=== PATIENT | male | born 1965 | race Two or more races ===

== ENCOUNTER 2016-09-13 13:31 | Inpatient (IN) | payer OTHER ==
[2016-09-13 15:02] VITALS: BMI 20.8
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
[2016-09-13] MEDS ORDERED: diphenhydrAMINE HCL 50 MG CAPSULE PO PRN (17:21)
[2016-09-13] MEDS ORDERED: guaiFENesin/D-METHORPHAN HB 10 ML UNIT-DOSE CUPS PO PRN (17:21)
[2016-09-13] MEDS ORDERED: IBUPROFEN 400 MG TABLET (FP) PO PRN (17:21)
[2016-09-13] MEDS ORDERED: LOPERAMIDE HCL 2 MG CAPSULE PO PRN (17:21)
[2016-09-13] MEDS ORDERED: MAGNESIUM HYDROX 2400MG/30ML ORAL SUSPENSION 30 ML CUP PO PRN (17:21)
[2016-09-13] MEDS ORDERED: MENTHOL/PHENOL 1 EACH UD MM PRN (17:21)
[2016-09-13] MEDS ORDERED: MAGNESIUM CITRATE 300 ML BOTTLE PO PRN (17:21)
[2016-09-13] MEDS ORDERED: MAG HYDROX/AL HYDROX/SIMETH 30 ML UNIT-DOSE CUP PO PRN (17:21)
[2016-09-13] MEDS ORDERED: P-EPHED 60MG/TRIPROLIDI 2.5MG TABLET PO PRN (17:21)
[2016-09-13] MEDS ORDERED: ACETAMINOPHEN 325 MG TABLET (FP) PO PRN (17:21)
[2016-09-13] MEDS ORDERED: NICOTINE POLACRILEX 2 MG GUM BUC PRN (17:23)
[2016-09-13] MEDS ORDERED: diazePAM 5 MG TABLET PO ONE (18:30)
[2016-09-13] MEDS ORDERED: METHADONE HCL 10 MG TABLET (FOR DETOX USE ONLY) PO ONE ×2 (18:30→23:00)
[2016-09-13] MEDS: NICOTINE 14 MG/24 HOURS TOPICAL PATCH TD SCH (18:52)
[2016-09-13] MEDS: BACITRACIN 0.9 GM PACKET TP SCH ×2 (18:52→22:11)
[2016-09-13] MEDS: THIAMINE HCL 100 MG TABLET (FP) PO SCH (22:11)
[2016-09-13] MEDS: diazePAM 5 MG TABLET PO SCH (22:12)
[2016-09-13] MEDS: SULFAMETHOXAZOLE/TRIMETHOPRIM 800MG/160MG D.S. TABLET PO SCH (22:12)
[2016-09-14] MEDS: diazePAM 5 MG TABLET PO SCH ×3 (05:26→22:12)
[2016-09-14] MEDS ORDERED: METHADONE HCL 10 MG TABLET (FOR DETOX USE ONLY) PO SCH (10:00)
--- NOTE | 2016-09-14 10:03 | PN ---
[facility] CIWA - CIWA Score Nausea/Vomitin-No Nausea/No Vomiting Muscle Tremors: 4-Moderate,w/Arms Extend Anxiety: 4-Mod. Anxious/Guarded Agitation: 3 Paroxysmal Sweats: 3 Orientation: 0-Oriented Tacttile Disturbances: 0-None Auditory Disturbances: 0-None Visual Disturbances: 0-None Headache: 0-None Present CIWA-Ar Total Score: 14 S COWS - Scale Resting Pulse: 0= [place] 80 or Below Sweatin=Flushed/Facial Moisture Restless Observation: 1= Difficult to Sit Still Pupil Size: 0= Normal to Room Light Bone or Joint Aches: 2= Severe Diffuse Aches Runny Nose/ Eye Tearin= Runny Nose/Eyes GI Upset > 30mins: 2= Nausea/Diarrhea Tremor Observation of Outstretched Hands: 2= Slight Tremor Visible Yawning Observation: 1= 1-2x During Session Anxiety or Irritability: 2=Irritable/Anxious Goose Flesh Skin: 0=Smooth Skin COWS Score: 14 [facility] Progress Note (SOAP) Subjective: Anxiety,tremors,interrupted sleep,restless Objective: 09/14/16 10:06 Vital Signs - 8 hr 09/14/16 09/14/16 09/14/16 03:30 06:22 09:11 Temperature 97 F L 98.1 F Pulse Rate 69 77 Respiratory 18 18 20 Rate Blood Pressure 110/65 101/66 Assessment: 09/14/16 10:07 Withdrawal sx. Plan: Continue detox
[2016-09-14 10:05] LABS: MCHC 33.6 g/dl (32.0-35.9); MEAN CELL VOLUME 89.4 fl (80-96); MEAN PLT VOLUME 10.5 fl (7.5-11.1); PLATELET COUNT 138 K/MM3 (134-434); WHITE BLOOD COUNT 3.9 K/mm3 (4.0-10.0)
[2016-09-14] MEDS: SULFAMETHOXAZOLE/TRIMETHOPRIM 800MG/160MG D.S. TABLET PO SCH ×2 (10:18→22:12)
[2016-09-14] MEDS: PRENATAL VITAMINS W/ FOLIC ACID TABLET (FP) PO SCH (10:18)
[2016-09-14] MEDS: BACITRACIN 0.9 GM PACKET TP SCH ×4 (10:18→22:12)
[2016-09-14] MEDS: NICOTINE 14 MG/24 HOURS TOPICAL PATCH TD SCH (10:19)
[2016-09-14 10:40] LABS: ALBUMIN 3.9 g/dl (3.4-5.0); BILIRUBIN,TOTAL 0.5 mg/dL (0.2-1.0); CREATININE 1.3 mg/dL (0.7-1.3); TOT PROT 7.4 g/dl (6.4-8.2)
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
[2016-09-14 14:41] LABS: URINE APPEARANCE CLEAR; URINE BILIRUBIN NEGATIVE (NEGATIVE); URINE BLOOD NEGATIVE (NEGATIVE); URINE COLOR LTYELLOW; URINE GLUCOSE (UA) NEGATIVE (NEGATIVE); URINE KETONE NEGATIVE (NEGATIVE); URINE LEUK ESTERASE NEGATIVE (NEGATIVE); URINE NITRITE NEGATIVE (NEGATIVE); URINE PROTEIN NEGATIVE (NEGATIVE); URINE UROBILINOGEN NEGATIVE E.U./dl (0.2-1.0)
--- NOTE | 2016-09-14 16:28 | EKG ---
Test Reason : Blood Pressure : / mmHG Vent. Rate : 080 BPM Atrial Rate : 080 BPM P-R Int : 156 ms QRS Dur : 072 ms QT Int : 360 ms P-R-T Axes : 073 066 066 degrees QTc Int : 415 ms NORMAL SINUS RHYTHM NORMAL ECG NO PREVIOUS ECGS AVAILABLE Confirmed by TORREY BAUTISTA, YASMANI ([id number]) on 09/14/2016 4:28:43 PM Referred By: Benito Frias Confirmed By:YASMANI HIRSCH MD
[2016-09-14] MEDS: diazePAM 5 MG TABLET PO PRN (17:07)
[2016-09-14] MEDS: THIAMINE HCL 100 MG TABLET (FP) PO SCH (22:12)
[2016-09-14] MEDS: QUEtiapine FUMARATE 50 MG TABLET PO SCH (22:13)
[2016-09-15] MEDS: diazePAM 5 MG TABLET PO PRN ×3 (05:12→18:48)
[2016-09-15] MEDS: diazePAM 5 MG TABLET PO SCH ×2 (10:10→22:09)
[2016-09-15] MEDS: BACITRACIN 0.9 GM PACKET TP SCH ×4 (10:10→22:09)
[2016-09-15] MEDS: PRENATAL VITAMINS W/ FOLIC ACID TABLET (FP) PO SCH (10:10)
[2016-09-15] MEDS: METHADONE HCL 5 MG TABLET (FOR DETOX USE ONLY) PO SCH (10:10)
[2016-09-15] MEDS: NICOTINE 14 MG/24 HOURS TOPICAL PATCH TD SCH (10:10)
[2016-09-15] MEDS: SULFAMETHOXAZOLE/TRIMETHOPRIM 800MG/160MG D.S. TABLET PO SCH ×2 (10:10→22:09)
--- NOTE | 2016-09-15 10:33 | PN ---
[facility] CIWA - CIWA Score Nausea/Vomitin-No Nausea/No Vomiting Muscle Tremors: 4-Moderate,w/Arms Extend Anxiety: 4-Mod. Anxious/Guarded Agitation: 4-Moderately Restless Paroxysmal Sweats: 1-Minimal Palms Moist Orientation: 0-Oriented Tacttile Disturbances: 3-Moderate Itch/Numb/Burn Auditory Disturbances: 0-None Visual Disturbances: 0-None Headache: 0-None Present CIWA-Ar Total Score: 16 BHS COWS - Scale Resting Pulse: 1= [place] 81-100 Sweatin= Chills/Flushing Restless Observation: 3= Extraneous Movement Pupil Size: 2= Moderately Dilated Bone or Joint Aches: 4=Acute Joint/Muscle Pain Runny Nose/ Eye Tearin= Nasal Congestion GI Upset > 30mins: 1= Stomach Cramp Tremor Observation of Outstretched Hands: 2= Slight Tremor Visible Yawning Observation: 2= >3x During Session Anxiety or Irritability: 2=Irritable/Anxious Goose Flesh Skin: 0=Smooth Skin COWS Score: 19 S Progress Note (SOAP) Subjective: SWEATS/CHILLS,ANXIETY, INTERMITTENT SLEEP. Objective: 09/15/16 10:32 Vital Signs 09/15/16 09/15/16 09/15/16 03:22 06:32 09:58 Temperature 96.6 F L 96.8 F L Pulse Rate 88 76 Respiratory 18 18 18 Rate Blood Pressure 100/68 96/64 Laboratory Last Values WBC 3.9 K/mm3 (4.0-10.0) L D 09/14/16 06:00 RBC 4.48 M/mm3 (4.00-5.60) 09/14/16 06:00 Hgb 13.4 GM/dL (11.7-16.9) 09/14/16 06:00 Hct 40.0 % (35.4-49) 09/14/16 06:00 MCV 89.4 fl (80-96) 09/14/16 06:00 MCHC 33.6 g/dl (32.0-35.9) 09/14/16 06:00 RDW 13.0 % (11.9-15.9) 09/14/16 06:00 Plt Count 138 K/MM3 (134-434) D 09/14/16 06:00 MPV 10.5 fl (7.5-11.1) D 09/14/16 06:00 Sodium 139 mmol/L (136-145) 09/14/16 06:00 Potassium 4.9 mmol/L (3.5-5.1) 09/14/16 06:00 Chloride 101 mmol/L (98-107) 09/14/16 06:00 Carbon Dioxide 30 mmol/L (21-32) 09/14/16 06:00 Anion Gap 8 (8-16) 09/14/16 06:00 BUN 12 mg/dL (7-18) 09/14/16 06:00 Creatinine 1.3 mg/dL (0.7-1.3) 09/14/16 06:00 Creat Clearance w eGFR 58.67 (>60) 09/14/16 06:00 Random Glucose 132 mg/dL (74-106) H D 09/14/16 06:00 Calcium 9.0 mg/dL (8.5-10.1) 09/14/16 06:00 Total Bilirubin 0.5 mg/dL (0.2-1.0) D 09/14/16 06:00 AST 20 U/L (15-37) 09/14/16 06:00 ALT 26 U/L (12-78) 09/14/16 06:00 Alkaline Phosphatase 88 U/L (45-117) 09/14/16 06:00 Total Protein 7.4 g/dl (6.4-8.2) 09/14/16 06:00 Albumin 3.9 g/dl (3.4-5.0) 09/14/16 06:00 Urine Color Ltyellow 09/14/16 09:50 Urine Appearance Clear 09/14/16 09:50 Urine pH 7.0 (5.0-8.0) 09/14/16 09:50 Ur Specific [place] 1.017 (1.001-1.035) 09/14/16 09:50 Urine Protein Negative (NEGATIVE) 09/14/16 09:50 Urine Glucose (UA) Negative (NEGATIVE) 09/14/16 09:50 Urine Ketones Negative (NEGATIVE) 09/14/16 09:50 Urine Blood Negative (NEGATIVE) 09/14/16 09:50 Urine Nitrite Negative (NEGATIVE) 09/14/16 09:50 Urine Bilirubin Negative (NEGATIVE) 09/14/16 09:50 Urine Urobilinogen Negative E.U./dl (0.2-1.0) 09/14/16 09:50 Ur Leukocyte Esterase Negative (NEGATIVE) 09/14/16 09:50 RPR Titer Nonreactive (NONREACTIVE) 09/14/16 06:00 Assessment: 09/15/16 10:33 WITHDRAWAL SX Plan: CONTINUE DETOX
[2016-09-15] MEDS: THIAMINE HCL 100 MG TABLET (FP) PO SCH (22:09)
[2016-09-15] MEDS: QUEtiapine FUMARATE 50 MG TABLET PO SCH (22:09)
[2016-09-16] MEDS: diazePAM 5 MG TABLET PO PRN ×2 (05:36→17:19)
[2016-09-16] MEDS: BACITRACIN 0.9 GM PACKET TP SCH ×4 (10:18→22:13)
[2016-09-16] MEDS: SULFAMETHOXAZOLE/TRIMETHOPRIM 800MG/160MG D.S. TABLET PO SCH ×2 (10:18→22:13)
[2016-09-16] MEDS: METHADONE HCL 5 MG TABLET (FOR DETOX USE ONLY) PO SCH (10:18)
[2016-09-16] MEDS: PRENATAL VITAMINS W/ FOLIC ACID TABLET (FP) PO SCH (10:18)
[2016-09-16] MEDS: NICOTINE 14 MG/24 HOURS TOPICAL PATCH TD SCH (10:19)
[2016-09-16] MEDS: diazePAM 5 MG TABLET PO SCH ×2 (10:19→22:13)
--- NOTE | 2016-09-16 11:33 | PN ---
BHS Progress Note (SOAP) Subjective: Sweating,interrupted sleep,restless.Abscess is slowly liquifying. Objective: 09/16/16 11:30 Vital Signs - 8 hr 09/16/16 09/16/16 09/16/16 03:45 06:24 09:37 Temperature 98.1 F 98.4 F Pulse Rate 85 91 H Respiratory 18 16 18 Rate Blood Pressure 109/76 108/73 Laboratory Tests 09/14/16 09/14/16 09/14/16 06:00 06:00 06:00 WBC 3.9 L D RBC 4.48 Hgb 13.4 Hct 40.0 MCV 89.4 MCHC 33.6 RDW 13.0 Plt Count 138 D MPV 10.5 D Sodium 139 Potassium 4.9 Chloride 101 Carbon Dioxide 30 Anion Gap 8 BUN 12 Creatinine 1.3 Creat Clearance w eGFR 58.67 Random Glucose 132 H D Calcium 9.0 Total Bilirubin 0.5 D AST 20 ALT 26 Alkaline Phosphatase 88 Total Protein 7.4 Albumin 3.9 Urine Color Urine Appearance Urine pH Ur Specific [place] Urine Protein Urine Glucose (UA) Urine Ketones Urine Blood Urine Nitrite Urine Bilirubin Urine Urobilinogen Ur Leukocyte Esterase RPR Titer Nonreactive 09/14/16 09:50 WBC RBC Hgb Hct MCV MCHC RDW Plt Count MPV Sodium Potassium Chloride Carbon Dioxide Anion Gap BUN Creatinine Creat Clearance w eGFR Random Glucose Calcium Total Bilirubin AST ALT Alkaline Phosphatase Total Protein Albumin Urine Color Ltyellow Urine Appearance Clear Urine pH 7.0 Ur Specific [place] 1.017 Urine Protein Negative Urine Glucose (UA) Negative Urine Ketones Negative Urine Blood Negative Urine Nitrite Negative Urine Bilirubin Negative Urine Urobilinogen Negative Ur Leukocyte Esterase Negative RPR Titer labs noted Assessment: 09/16/16 11:30 Withdrawal sx. Plan: Continue detox
[2016-09-16] MEDS: QUEtiapine FUMARATE 50 MG TABLET PO SCH (22:13)
[2016-09-16] MEDS: THIAMINE HCL 100 MG TABLET (FP) PO SCH (22:13)
[2016-09-17] MEDS ORDERED: diazePAM 5 MG TABLET PO SCH (10:00)
[2016-09-17] MEDS ORDERED: METHADONE HCL 10 MG TABLET (FOR DETOX USE ONLY) PO SCH (10:00)
[2016-09-17] MEDS: NICOTINE 14 MG/24 HOURS TOPICAL PATCH TD SCH (10:23)
[2016-09-17] MEDS: BACITRACIN 0.9 GM PACKET TP SCH ×4 (10:23→22:10)
[2016-09-17] MEDS: PRENATAL VITAMINS W/ FOLIC ACID TABLET (FP) PO SCH (10:23)
[2016-09-17] MEDS: SULFAMETHOXAZOLE/TRIMETHOPRIM 800MG/160MG D.S. TABLET PO SCH ×2 (10:23→22:10)
--- NOTE | 2016-09-17 13:11 | PN ---
B[facility] Progress Note (SOAP) Subjective: Sweating,interrupted sleep,restless. Abscess is draining, we'll cover with 4x4 gauze. Objective: 09/17/16 13:09 Vital Signs - 8 hr 09/17/16 09/17/16 06:28 09:25 Temperature 96.9 F L 97.7 F Pulse Rate 81 83 Respiratory 16 18 Rate Blood Pressure 84/60 97/61 Laboratory Tests 09/14/16 09/14/16 09/14/16 06:00 06:00 06:00 WBC 3.9 L D RBC 4.48 Hgb 13.4 Hct 40.0 MCV 89.4 MCHC 33.6 RDW 13.0 Plt Count 138 D MPV 10.5 D Sodium 139 Potassium 4.9 Chloride 101 Carbon Dioxide 30 Anion Gap 8 BUN 12 Creatinine 1.3 Creat Clearance w eGFR 58.67 Random Glucose 132 H D Calcium 9.0 Total Bilirubin 0.5 D AST 20 ALT 26 Alkaline Phosphatase 88 Total Protein 7.4 Albumin 3.9 Urine Color Urine Appearance Urine pH Ur Specific [place] Urine Protein Urine Glucose (UA) Urine Ketones Urine Blood Urine Nitrite Urine Bilirubin Urine Urobilinogen Ur Leukocyte Esterase RPR Titer Nonreactive 09/14/16 09:50 WBC RBC Hgb Hct MCV MCHC RDW Plt Count MPV Sodium Potassium Chloride Carbon Dioxide Anion Gap BUN Creatinine Creat Clearance w eGFR Random Glucose Calcium Total Bilirubin AST ALT Alkaline Phosphatase Total Protein Albumin Urine Color Ltyellow Urine Appearance Clear Urine pH 7.0 Ur Specific [place] 1.017 Urine Protein Negative Urine Glucose (UA) Negative Urine Ketones Negative Urine Blood Negative Urine Nitrite Negative Urine Bilirubin Negative Urine Urobilinogen Negative Ur Leukocyte Esterase Negative RPR Titer labs noted Assessment: 09/17/16 13:09 Withdrawal sx. Plan: Continue detox
--- NOTE | 2016-09-17 13:14 | PN ---
BHS Progress Note (SOAP) Subjective: Sweating,interrupted sleep,restless Objective: 09/17/16 13:13 Vital Signs - 8 hr 09/17/16 09/17/16 06:28 09:25 Temperature 96.9 F L 97.7 F Pulse Rate 81 83 Respiratory 16 18 Rate Blood Pressure 84/60 97/61 Laboratory Tests 09/14/16 09/14/16 09/14/16 06:00 06:00 06:00 WBC 3.9 L D RBC 4.48 Hgb 13.4 Hct 40.0 MCV 89.4 MCHC 33.6 RDW 13.0 Plt Count 138 D MPV 10.5 D Sodium 139 Potassium 4.9 Chloride 101 Carbon Dioxide 30 Anion Gap 8 BUN 12 Creatinine 1.3 Creat Clearance w eGFR 58.67 Random Glucose 132 H D Calcium 9.0 Total Bilirubin 0.5 D AST 20 ALT 26 Alkaline Phosphatase 88 Total Protein 7.4 Albumin 3.9 Urine Color Urine Appearance Urine pH Ur Specific [place] Urine Protein Urine Glucose (UA) Urine Ketones Urine Blood Urine Nitrite Urine Bilirubin Urine Urobilinogen Ur Leukocyte Esterase RPR Titer Nonreactive 09/14/16 09:50 WBC RBC Hgb Hct MCV MCHC RDW Plt Count MPV Sodium Potassium Chloride Carbon Dioxide Anion Gap BUN Creatinine Creat Clearance w eGFR Random Glucose Calcium Total Bilirubin AST ALT Alkaline Phosphatase Total Protein Albumin Urine Color Ltyellow Urine Appearance Clear Urine pH 7.0 Ur Specific [place] 1.017 Urine Protein Negative Urine Glucose (UA) Negative Urine Ketones Negative Urine Blood Negative Urine Nitrite Negative Urine Bilirubin Negative Urine Urobilinogen Negative Ur Leukocyte Esterase Negative RPR Titer labs noted Assessment: 09/17/16 13:14 Continue detox
[2016-09-17] MEDS: THIAMINE HCL 100 MG TABLET (FP) PO SCH (22:10)
[2016-09-17] MEDS: QUEtiapine FUMARATE 50 MG TABLET PO SCH (22:10)
[2016-09-18] MEDS ORDERED: METHADONE HCL 5 MG TABLET (FOR DETOX USE ONLY) PO SCH (06:00)
[2016-09-18 06:38] VITALS: BP 93/58; PULSE 77; TEMP 96.1
--- NOTE | 2016-09-18 09:31 | DS ---
[facility] Detox Discharge Summary Admission Date: 09/13/16 Discharge Date: 09/18/16 - History Present History: Opioid Dependence, Sedative Dependence Pertinent Past History: Hep C - Physical Exam Results Vital Signs: Vital Signs Temperature 96.1 F L 09/18/16 06:37 Pulse Rate 77 09/18/16 06:37 Respiratory Rate 18 09/18/16 06:37 Blood Pressure 93/58 09/18/16 06:37 O2 Sat by Pulse Oximetry (%) Pertinent Admission Physical Exam Findings: Withdrawal sx. Laboratory Last Values WBC 3.9 K/mm3 (4.0-10.0) L D 09/14/16 06:00 RBC 4.48 M/mm3 (4.00-5.60) 09/14/16 06:00 Hgb 13.4 GM/dL (11.7-16.9) 09/14/16 06:00 Hct 40.0 % (35.4-49) 09/14/16 06:00 MCV 89.4 fl (80-96) 09/14/16 06:00 MCHC 33.6 g/dl (32.0-35.9) 09/14/16 06:00 RDW 13.0 % (11.9-15.9) 09/14/16 06:00 Plt Count 138 K/MM3 (134-434) D 09/14/16 06:00 MPV 10.5 fl (7.5-11.1) D 09/14/16 06:00 Sodium 139 mmol/L (136-145) 09/14/16 06:00 Potassium 4.9 mmol/L (3.5-5.1) 09/14/16 06:00 Chloride 101 mmol/L (98-107) 09/14/16 06:00 Carbon Dioxide 30 mmol/L (21-32) 09/14/16 06:00 Anion Gap 8 (8-16) 09/14/16 06:00 BUN 12 mg/dL (7-18) 09/14/16 06:00 Creatinine 1.3 mg/dL (0.7-1.3) 09/14/16 06:00 Creat Clearance w eGFR 58.67 (>60) 09/14/16 06:00 Random Glucose 132 mg/dL (74-106) H D 09/14/16 06:00 Calcium 9.0 mg/dL (8.5-10.1) 09/14/16 06:00 Total Bilirubin 0.5 mg/dL (0.2-1.0) D 09/14/16 06:00 AST 20 U/L (15-37) 09/14/16 06:00 ALT 26 U/L (12-78) 09/14/16 06:00 Alkaline Phosphatase 88 U/L (45-117) 09/14/16 06:00 Total Protein 7.4 g/dl (6.4-8.2) 09/14/16 06:00 Albumin 3.9 g/dl (3.4-5.0) 09/14/16 06:00 Urine Color Ltyellow 09/14/16 09:50 Urine Appearance Clear 09/14/16 09:50 Urine pH 7.0 (5.0-8.0) 09/14/16 09:50 Ur Specific [place] 1.017 (1.001-1.035) 09/14/16 09:50 Urine Protein Negative (NEGATIVE) 09/14/16 09:50 Urine Glucose (UA) Negative (NEGATIVE) 09/14/16 09:50 Urine Ketones Negative (NEGATIVE) 09/14/16 09:50 Urine Blood Negative (NEGATIVE) 09/14/16 09:50 Urine Nitrite Negative (NEGATIVE) 09/14/16 09:50 Urine Bilirubin Negative (NEGATIVE) 09/14/16 09:50 Urine Urobilinogen Negative E.U./dl (0.2-1.0) 09/14/16 09:50 Ur Leukocyte Esterase Negative (NEGATIVE) 09/14/16 09:50 RPR Titer Nonreactive (NONREACTIVE) 09/14/16 06:00 labs noted - Treatment Hospital Course: Detox Protocol Followed, Detoxed Safely, Responded well, Discharged Condition Good, Rehab Referral Accepted Patient has Accepted a Rehab Referral to: [facility] - Medication Discharge Medications: Ambulatory Orders Sulfamethoxazole/Trimethoprim [Bactrim Ds -] 1 tab PO BID 09/18/16 - Diagnosis (1) Hepatitis C Current Visit: No Status: Chronic Qualifiers: Hepatic coma status: without hepatic coma (2) Nicotine dependence Current Visit: Yes Status: Chronic Qualifiers: Nicotine product type: cigarettes Substance use status: uncomplicated Qualified Code(s): F17.210 - Nicotine dependence, cigarettes, uncomplicated (3) Opioid dependence with withdrawal Current Visit: Yes Status: Acute (4) Sedative, hypnotic or anxiolytic dependence with withdrawal, uncomplicated Current Visit: Yes Status: Acute (5) Abscess of left upper extremity Current Visit: Yes Status: Acute (6) Bipolar disorder Current Visit: No Status: Chronic - AMA Did Patient Leave Against Medical Advice: No
[2016-09-18] MEDS: PRENATAL VITAMINS W/ FOLIC ACID TABLET (FP) PO SCH (10:15)
[2016-09-18] MEDS: SULFAMETHOXAZOLE/TRIMETHOPRIM 800MG/160MG D.S. TABLET PO SCH (10:15)
[2016-09-18] MEDS: BACITRACIN 0.9 GM PACKET TP SCH (10:15)
[2016-09-18] MEDS: NICOTINE 14 MG/24 HOURS TOPICAL PATCH TD SCH (10:15)
== END 2016-09-18 13:29 | disposition home or self-care (01) | DRG 773 ==
LOC: YASAS 13:31 → Y3N 18:05
PROVIDERS: ADMIT Internal Medicine; ATTEND Internal Medicine
PROC: HZ2ZZZZ Detoxification Services for Substance Abuse Treatment (ICD-10-PCS; principal; 2016-09-18)
DX: F11.23 Opioid dependence with withdrawal (principal); F13.230 Sedative, hypnotic or anxiolytic dependence with withdrawal, uncomplicated; F17.210 Nicotine dependence, cigarettes, uncomplicated; F31.9 Bipolar disorder, unspecified; B18.2 Chronic viral hepatitis C; L02.414 Cutaneous abscess of left upper limb
CPT/HCPCS: 36415; 80053; 81003; 85027; 86593; 93005; 93010

== ENCOUNTER 2016-10-11 14:00 | Inpatient (IN) | payer OTHER ==
[2016-10-11 15:01] VITALS: BMI 20.5
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
[2016-10-11] MEDS ORDERED: MAG HYDROX/AL HYDROX/SIMETH 30 ML UNIT-DOSE CUP PO PRN (16:49)
[2016-10-11] MEDS ORDERED: MAGNESIUM HYDROX 2400MG/30ML ORAL SUSPENSION 30 ML CUP PO PRN (16:49)
[2016-10-11] MEDS ORDERED: MENTHOL/PHENOL 1 EACH UD MM PRN (16:49)
[2016-10-11] MEDS ORDERED: P-EPHED 60MG/TRIPROLIDI 2.5MG TABLET PO PRN (16:49)
[2016-10-11] MEDS ORDERED: guaiFENesin/D-METHORPHAN HB 10 ML UNIT-DOSE CUPS PO PRN (16:49)
[2016-10-11] MEDS ORDERED: ACETAMINOPHEN 325 MG TABLET (FP) PO PRN (16:49)
[2016-10-11] MEDS ORDERED: MAGNESIUM CITRATE 300 ML BOTTLE PO PRN (16:49)
[2016-10-11] MEDS ORDERED: LOPERAMIDE HCL 2 MG CAPSULE PO PRN (16:49)
[2016-10-11] MEDS ORDERED: hydrOXYzine PAMOATE 50 MG CAPSULE (FP) PO PRN (16:49)
[2016-10-11] MEDS ORDERED: IBUPROFEN 400 MG TABLET (FP) PO PRN (16:49)
[2016-10-11] MEDS ORDERED: NICOTINE POLACRILEX 2 MG GUM BC PRN (16:49)
[2016-10-11] MEDS ORDERED: METHADONE HCL 10 MG TABLET (FOR DETOX USE ONLY) PO ONE ×2 (17:15→23:00)
[2016-10-11] MEDS ORDERED: diazePAM 5 MG TABLET PO ONE (17:15)
[2016-10-11] MEDS: NICOTINE 14 MG/24 HOURS TOPICAL PATCH TD SCH (18:13)
[2016-10-11] MEDS: THIAMINE HCL 100 MG TABLET (FP) PO SCH (22:08)
[2016-10-11] MEDS: diazePAM 5 MG TABLET PO SCH (22:08)
[2016-10-11] MEDS: diphenhydrAMINE HCL 50 MG CAPSULE PO PRN (22:08)
[2016-10-11 23:55] LABS: URINE APPEARANCE CLEAR; URINE BILIRUBIN NEGATIVE (NEGATIVE); URINE BLOOD NEGATIVE (NEGATIVE); URINE COLOR YELLOW; URINE GLUCOSE (UA) NEGATIVE (NEGATIVE); URINE KETONE NEGATIVE (NEGATIVE); URINE LEUK ESTERASE NEGATIVE (NEGATIVE); URINE NITRITE NEGATIVE (NEGATIVE); URINE PROTEIN NEGATIVE (NEGATIVE); URINE UROBILINOGEN NEGATIVE E.U./dl (0.2-1.0)
[2016-10-12] MEDS: diazePAM 5 MG TABLET PO SCH ×3 (06:03→22:12)
--- NOTE | 2016-10-12 08:54 | CONSULT ---
[facility] Psychiatric Consult - Data Date of interview: 10/12/16 Admission source: [facility] Identifying data: This is 42 years old male with psychiatric hospitalization history intoxicated with: Opioids, Xanax and Nicotine Substance Abuse History: - Smoking Cessation. Smoking history: Current every day smoker. Have you smoked in the past 12 months: Yes. Aproximately how many cigarettes per day: 8. Hx Chewing Tobacco Use: No. Initiated information on smoking cessation: Yes. 'Breaking Loose' booklet given: 10/11/16. - Substance & Tx. History. Hx Alcohol Use: No. Hx Substance Use: Yes. Substance Use Type : Heroin, Opiates, Tranquilizers. Hx Substance Use Treatment: Yes (Detox). - Substances Abused. Heroin. Route: Injection. Frequency: Daily. Amount used: 8 BAGS AND UP. Age of first use: 46. Date of Last Use: 10/10/16. Alprazolam (Xanax). Route: Oral. Frequency: Daily. Amount used: 6-8MG. Age of first use: 49. Date of Last Use: 10/11/16. PERCOCET. Route: Oral. Frequency: 1-3 times last 30 days. Amount used: 1 PILL. Age of first use: 51. Date of Last Use: 10/11/16 Medical History: Denies significant medical issues Psychiatric History: Patient reprots history of Bipolar Disorder, most recent psychiatrioc admission on 2015, reports no medications taking prior to admission. Physical/Sexual Abuse/Trauma History: Denies Additional Comment: Observation. Detox Unit Care Protocol Mental Status Exam - Mental Status Exam Alert and Oriented to: Person Cognitive Function: Fair Patient Appearance: Unkempt Mood: Sad Affect: Flat Patient Behavior: Cooperative Speech Pattern: Appropriate Voice Loudness: Mildly Soft/Quiet Thought Process: Circumstantial Thought Disorder: Being Controlled Hallucinations: Denies Suicidal Ideation: Denies Homicidal Ideation: Denies Insight/Judgement: Fair Sleep: Difficulty falling asleep Appetite: Weight loss Muscle strength/Tone: Mild Hypotonicity Gait/Station: Shuffling Additional Comments: Observation. Detox Unit Care Protocol Psychiatric Findings - Problem List ([place] 1, 2,3) (1) Opioid dependence with withdrawal Current Visit: Yes Status: Acute (2) Sedative, hypnotic or anxiolytic dependence with withdrawal, uncomplicated Current Visit: Yes Status: Acute (3) Nicotine dependence Current Visit: Yes Status: Chronic Qualifiers: Nicotine product type: cigarettes Substance use status: uncomplicated Qualified Code(s): F17.210 - Nicotine dependence, cigarettes, uncomplicated (4) Benzodiazepine dependence Current Visit: No Status: Chronic (5) Bipolar disorder Current Visit: No Status: Chronic (6) Opioid dependence Current Visit: No Status: Chronic - Initial Treatment Plan Initial Treatment Plan: Observation. Detox Unit Care Protocol
[2016-10-12] MEDS ORDERED: METHADONE HCL 10 MG TABLET (FOR DETOX USE ONLY) PO SCH (10:00)
[2016-10-12 10:12] LABS: MCHC 33.4 g/dl (32.0-35.9); MEAN CELL VOLUME 89.9 fl (80-96); MEAN PLT VOLUME 9.7 fl (7.5-11.1); PLATELET COUNT 159 K/MM3 (134-434); RDW 13.2 % (11.9-15.9); WHITE BLOOD COUNT 4.7 K/mm3 (4.0-10.0)
[2016-10-12 10:32] LABS: ALBUMIN 3.7 g/dl (3.4-5.0); CALCIUM 9.2 mg/dL (8.5-10.1); GLUCOSE,RANDOM 111 mg/dL (74-106)
[2016-10-12 10:37] LABS: ALK PHOS 98 U/L (45-117); ANION GAP 5 (8-16); BILIRUBIN,TOTAL 0.3 mg/dL (0.2-1.0); CO2 33 mmol/L (21-32); COCKROFT - GAULT 64.49; CREATININE 1.2 mg/dL (0.7-1.3); SGOT/AST 21 U/L (15-37); SGPT/ALT 24 U/L (12-78); TOT PROT 7.1 g/dl (6.4-8.2)
[2016-10-12] MEDS: PRENATAL VITAMINS W/ FOLIC ACID TABLET (FP) PO SCH (11:03)
[2016-10-12] MEDS: diazePAM 5 MG TABLET PO PRN ×2 (11:03→17:39)
[2016-10-12] MEDS: NICOTINE 14 MG/24 HOURS TOPICAL PATCH TD SCH (11:04)
--- NOTE | 2016-10-12 11:47 | PN ---
[facility] CIWA - CIWA Score Nausea/Vomitin-No Nausea/No Vomiting Muscle Tremors: 4-Moderate,w/Arms Extend Anxiety: 3 Agitation: 4-Moderately Restless Paroxysmal Sweats: 3 Orientation: 0-Oriented Tacttile Disturbances: 0-None Auditory Disturbances: 0-None Visual Disturbances: 0-None Headache: 0-None Present CIWA-Ar Total Score: 14 BHS COWS - Scale Resting Pulse: 0= [place] 80 or Below Sweatin=Flushed/Facial Moisture Restless Observation: 0= Sits Still Pupil Size: 0= Normal to Room Light Bone or Joint Aches: 2= Severe Diffuse Aches Runny Nose/ Eye Tearin= Nasal Congestion GI Upset > 30mins: 1= Stomach Cramp Tremor Observation of Outstretched Hands: 2= Slight Tremor Visible Yawning Observation: 2= >3x During Session Anxiety or Irritability: 2=Irritable/Anxious Goose Flesh Skin: 0=Smooth Skin COWS Score: 12 S Progress Note (SOAP) Subjective: agitation anxiety sweats stomach cramp irritable Objective: 10/12/16 11:46 Vital Signs Temperature 98.4 F 10/12/16 09:32 Pulse Rate 79 10/12/16 09:32 Respiratory Rate 18 10/12/16 09:32 Blood Pressure 115/73 10/12/16 09:32 O2 Sat by Pulse Oximetry (%) Laboratory Tests 10/11/16 10/12/16 10/12/16 23:40 07:00 07:00 WBC 4.7 RBC 4.79 Hgb 14.4 Hct 43.0 MCV 89.9 MCHC 33.4 RDW 13.2 Plt Count 159 MPV 9.7 Sodium 140 Potassium 5.1 Chloride 102 Carbon Dioxide 33 H Anion Gap 5 L BUN 15 D Creatinine 1.2 Creat Clearance w eGFR > 60 Random Glucose 111 H Calcium 9.2 Total Bilirubin 0.3 D AST 21 ALT 24 Alkaline Phosphatase 98 Total Protein 7.1 Albumin 3.7 Urine Color Yellow Urine Appearance Clear Urine pH 6.0 Urine Protein Negative Urine Glucose (UA) Negative Urine Ketones Negative Urine Blood Negative Urine Nitrite Negative Urine Bilirubin Negative Urine Urobilinogen Negative Ur Leukocyte Esterase Negative awake/alert ambulating no acute distress Assessment: 10/12/16 11:46 withdrawal sx Plan: continue detox increase fluids MOM/mylanta prn
--- NOTE | 2016-10-12 17:38 | EKG ---
Test Reason : Blood Pressure : / mmHG Vent. Rate : 075 BPM Atrial Rate : 075 BPM P-R Int : 140 ms QRS Dur : 070 ms QT Int : 370 ms P-R-T Axes : 080 062 062 degrees QTc Int : 413 ms NORMAL SINUS RHYTHM NORMAL ECG WHEN COMPARED WITH ECG OF 13-SEP-2016 18:02, NO SIGNIFICANT CHANGE WAS FOUND Confirmed by YASMANI HIRSCH MD ([id number]) on 10/12/2016 5:38:28 PM Referred By: Confirmed By:YASMANI HIRSCH MD
[2016-10-12] MEDS: THIAMINE HCL 100 MG TABLET (FP) PO SCH (22:12)
[2016-10-12] MEDS: diphenhydrAMINE HCL 50 MG CAPSULE PO PRN (22:12)
[2016-10-13] MEDS: diazePAM 5 MG TABLET PO PRN ×2 (06:08→14:02)
--- NOTE | 2016-10-13 10:31 | PN ---
S CIWA - CIWA Score Nausea/Vomitin Muscle Tremors: 3 Anxiety: 3 Agitation: 2 Paroxysmal Sweats: 1-Minimal Palms Moist Orientation: 0-Oriented Tacttile Disturbances: 1-Very Mild Itch/Numbness Auditory Disturbances: 1-Very Mild Visual Disturbances: 1-Very Mild Sensitivity Headache: 2-Mild CIWA-Ar Total Score: 17 BHS COWS - Scale Resting Pulse: 0= [place] 80 or Below Sweatin= Chills/Flushing Restless Observation: 3= Extraneous Movement Pupil Size: 1= Pupils >than Normal Bone or Joint Aches: 2= Severe Diffuse Aches Runny Nose/ Eye Tearin= Runny Nose/Eyes GI Upset > 30mins: 2= Nausea/Diarrhea Tremor Observation of Outstretched Hands: 2= Slight Tremor Visible Yawning Observation: 1= 1-2x During Session Anxiety or Irritability: 2=Irritable/Anxious Goose Flesh Skin: 0=Smooth Skin COWS Score: 16 S Progress Note (SOAP) Subjective: ALERT,IRRITABLE,ANXIOUS,INTERRUPTED SLEEP,PAIN IN THE BODY AND BACK Objective: 10/13/16 10:29 Vital Signs Temperature 97.7 F 10/13/16 06:35 Pulse Rate 58 L 10/13/16 06:35 Respiratory Rate 16 10/13/16 06:35 Blood Pressure 107/65 10/13/16 06:35 O2 Sat by Pulse Oximetry (%) Laboratory Last Values WBC 4.7 K/mm3 (4.0-10.0) 10/12/16 07:00 RBC 4.79 M/mm3 (4.00-5.60) 10/12/16 07:00 Hgb 14.4 GM/dL (11.7-16.9) 10/12/16 07:00 Hct 43.0 % (35.4-49) 10/12/16 07:00 MCV 89.9 fl (80-96) 10/12/16 07:00 MCHC 33.4 g/dl (32.0-35.9) 10/12/16 07:00 RDW 13.2 % (11.9-15.9) 10/12/16 07:00 Plt Count 159 K/MM3 (134-434) 10/12/16 07:00 MPV 9.7 fl (7.5-11.1) 10/12/16 07:00 Sodium 140 mmol/L (136-145) 10/12/16 07:00 Potassium 5.1 mmol/L (3.5-5.1) 10/12/16 07:00 Chloride 102 mmol/L (98-107) 10/12/16 07:00 Carbon Dioxide 33 mmol/L (21-32) H 10/12/16 07:00 Anion Gap 5 (8-16) L 10/12/16 07:00 BUN 15 mg/dL (7-18) D 10/12/16 07:00 Creatinine 1.2 mg/dL (0.7-1.3) 10/12/16 07:00 Creat Clearance w eGFR > 60 (>60) 10/12/16 07:00 Random Glucose 111 mg/dL (74-106) H 10/12/16 07:00 Calcium 9.2 mg/dL (8.5-10.1) 10/12/16 07:00 Total Bilirubin 0.3 mg/dL (0.2-1.0) D 10/12/16 07:00 AST 21 U/L (15-37) 10/12/16 07:00 ALT 24 U/L (12-78) 10/12/16 07:00 Alkaline Phosphatase 98 U/L (45-117) 10/12/16 07:00 Total Protein 7.1 g/dl (6.4-8.2) 10/12/16 07:00 Albumin 3.7 g/dl (3.4-5.0) 10/12/16 07:00 Urine Color Yellow 10/11/16 23:40 Urine Appearance Clear 10/11/16 23:40 Urine pH 6.0 (5.0-8.0) 10/11/16 23:40 Ur Specific [place] 1.015 (1.005-1.025) 10/11/16 23:40 Urine Protein Negative (NEGATIVE) 10/11/16 23:40 Urine Glucose (UA) Negative (NEGATIVE) 10/11/16 23:40 Urine Ketones Negative (NEGATIVE) 10/11/16 23:40 Urine Blood Negative (NEGATIVE) 10/11/16 23:40 Urine Nitrite Negative (NEGATIVE) 10/11/16 23:40 Urine Bilirubin Negative (NEGATIVE) 10/11/16 23:40 Urine Urobilinogen Negative E.U./dl (0.2-1.0) 10/11/16 23:40 Ur Leukocyte Esterase Negative (NEGATIVE) 10/11/16 23:40 RPR Titer Nonreactive (NONREACTIVE) 10/12/16 07:00 Assessment: 10/13/16 10:30 WITHDRAWAL SYMPTOM Plan: CONTINUE DETOX,INITIAL GLUCOSE 111,BGM MONITORING DAILY
[2016-10-13] MEDS: PRENATAL VITAMINS W/ FOLIC ACID TABLET (FP) PO SCH (11:07)
[2016-10-13] MEDS: NICOTINE 14 MG/24 HOURS TOPICAL PATCH TD SCH (11:07)
[2016-10-13] MEDS: diazePAM 5 MG TABLET PO SCH ×2 (11:07→22:11)
[2016-10-13] MEDS: METHADONE HCL 5 MG TABLET (FOR DETOX USE ONLY) PO SCH (11:07)
[2016-10-13] MEDS: CYCLOBENZAPRINE HCL 10 MG TABLET (FP) PO PRN ×2 (14:01→22:11)
[2016-10-13] MEDS: diphenhydrAMINE HCL 50 MG CAPSULE PO PRN (22:11)
[2016-10-13] MEDS: THIAMINE HCL 100 MG TABLET (FP) PO SCH (22:11)
[2016-10-13] MEDS: cloNIDine HCL 0.1 MG TABLET PO SCH (22:11)
[2016-10-14] MEDS: diazePAM 5 MG TABLET PO PRN (05:42)
[2016-10-14] MEDS: PRENATAL VITAMINS W/ FOLIC ACID TABLET (FP) PO SCH (10:53)
[2016-10-14] MEDS: cloNIDine HCL 0.1 MG TABLET PO SCH (10:53)
[2016-10-14] MEDS: METHADONE HCL 5 MG TABLET (FOR DETOX USE ONLY) PO SCH (10:54)
[2016-10-14] MEDS: NICOTINE 14 MG/24 HOURS TOPICAL PATCH TD SCH (10:54)
[2016-10-14] MEDS: diazePAM 5 MG TABLET PO SCH (10:55)
[2016-10-14] MEDS: CYCLOBENZAPRINE HCL 10 MG TABLET (FP) PO PRN (10:57)
--- NOTE | 2016-10-14 12:53 | PN ---
BHS Progress Note (SOAP) Subjective: Shakes, sweats and interrupted sleep Objective: 10/14/16 12:52 Vital Signs - 8 hr 10/14/16 10/14/16 06:00 10:37 Temperature 97.9 F 97.7 F Pulse Rate 69 87 Respiratory 16 16 Rate Blood Pressure 103/51 99/62 Laboratory Last Values WBC 4.7 K/mm3 (4.0-10.0) 10/12/16 07:00 RBC 4.79 M/mm3 (4.00-5.60) 10/12/16 07:00 Hgb 14.4 GM/dL (11.7-16.9) 10/12/16 07:00 Hct 43.0 % (35.4-49) 10/12/16 07:00 MCV 89.9 fl (80-96) 10/12/16 07:00 MCHC 33.4 g/dl (32.0-35.9) 10/12/16 07:00 RDW 13.2 % (11.9-15.9) 10/12/16 07:00 Plt Count 159 K/MM3 (134-434) 10/12/16 07:00 MPV 9.7 fl (7.5-11.1) 10/12/16 07:00 Sodium 140 mmol/L (136-145) 10/12/16 07:00 Potassium 5.1 mmol/L (3.5-5.1) 10/12/16 07:00 Chloride 102 mmol/L (98-107) 10/12/16 07:00 Carbon Dioxide 33 mmol/L (21-32) H 10/12/16 07:00 Anion Gap 5 (8-16) L 10/12/16 07:00 BUN 15 mg/dL (7-18) D 10/12/16 07:00 Creatinine 1.2 mg/dL (0.7-1.3) 10/12/16 07:00 Creat Clearance w eGFR > 60 (>60) 10/12/16 07:00 POC Glucometer 197 UNITS (()) 10/14/16 05:47 Random Glucose 111 mg/dL (74-106) H 10/12/16 07:00 Calcium 9.2 mg/dL (8.5-10.1) 10/12/16 07:00 Total Bilirubin 0.3 mg/dL (0.2-1.0) D 10/12/16 07:00 AST 21 U/L (15-37) 10/12/16 07:00 ALT 24 U/L (12-78) 10/12/16 07:00 Alkaline Phosphatase 98 U/L (45-117) 10/12/16 07:00 Total Protein 7.1 g/dl (6.4-8.2) 10/12/16 07:00 Albumin 3.7 g/dl (3.4-5.0) 10/12/16 07:00 Urine Color Yellow 10/11/16 23:40 Urine Appearance Clear 10/11/16 23:40 Urine pH 6.0 (5.0-8.0) 10/11/16 23:40 Ur Specific [place] 1.015 (1.005-1.025) 10/11/16 23:40 Urine Protein Negative (NEGATIVE) 10/11/16 23:40 Urine Glucose (UA) Negative (NEGATIVE) 10/11/16 23:40 Urine Ketones Negative (NEGATIVE) 10/11/16 23:40 Urine Blood Negative (NEGATIVE) 10/11/16 23:40 Urine Nitrite Negative (NEGATIVE) 10/11/16 23:40 Urine Bilirubin Negative (NEGATIVE) 10/11/16 23:40 Urine Urobilinogen Negative E.U./dl (0.2-1.0) 10/11/16 23:40 Ur Leukocyte Esterase Negative (NEGATIVE) 10/11/16 23:40 RPR Titer Nonreactive (NONREACTIVE) 10/12/16 07:00 Labs noted Assessment: 10/14/16 12:52 withdrawal sx Plan: continue detox
[2016-10-14 15:14] VITALS: PULSE 78; TEMP 98.1
[2016-10-14 17:37] VITALS: BP 90/55
--- NOTE | 2016-10-14 21:43 | PN ---
[facility] Progress Note Note: INFORMED CLIENT SIGNED OUT AMA AFTER SPEAKING WITH HIS COUNSELOR. SIGNED OUT DUE TO PERSONAL REASONS.
--- NOTE | 2016-10-15 07:07 | DS ---
[facility] Detox Discharge Summary Admission Date: 10/11/16 Discharge Date: 10/14/16 - History Present History: Opioid Dependence Pertinent Past History: HEP C NICOTINE DEPENDENCE - Physical Exam Results Vital Signs: Vital Signs Temperature 98.1 F 10/14/16 17:37 Pulse Rate 78 10/14/16 17:37 Respiratory Rate 18 10/14/16 17:37 Blood Pressure 90/55 10/14/16 17:37 O2 Sat by Pulse Oximetry (%) Pertinent Admission Physical Exam Findings: WITHDRAWAL SX'S - Medication Discharge Medications: Ambulatory Orders NK [No Known Home Medication] 10/11/16 - Diagnosis (1) Opioid dependence with withdrawal Status: Chronic (2) Sedative, hypnotic or anxiolytic dependence with withdrawal, uncomplicated Status: Chronic (3) Hepatitis C Status: Chronic Qualifiers: Viral hepatitis chronicity: chronic Hepatic coma status: without hepatic coma Qualified Code(s): B18.2 - Chronic viral hepatitis C (4) Nicotine dependence Status: Chronic Qualifiers: Nicotine product type: cigarettes Substance use status: uncomplicated Qualified Code(s): F17.210 - Nicotine dependence, cigarettes, uncomplicated (5) Opioid dependence Status: Chronic - AMA Did Patient Leave Against Medical Advice: Yes
[2016-10-15] MEDS ORDERED: METHADONE HCL 10 MG TABLET (FOR DETOX USE ONLY) PO SCH (10:00)
[2016-10-15] MEDS ORDERED: diazePAM 5 MG TABLET PO SCH (10:00)
[2016-10-16] MEDS ORDERED: METHADONE HCL 5 MG TABLET (FOR DETOX USE ONLY) PO SCH (06:00)
== END 2016-10-14 21:27 | disposition left against medical advice (07) | DRG 770 ==
LOC: YASAS 14:00 → Y6N 16:57
PROVIDERS: ADMIT Internal Medicine Addiction Medicine; ATTEND Internal Medicine Addiction Medicine
PROC: HZ2ZZZZ Detoxification Services for Substance Abuse Treatment (ICD-10-PCS; principal; 2016-10-14)
DX: F11.23 Opioid dependence with withdrawal (principal); F13.230 Sedative, hypnotic or anxiolytic dependence with withdrawal, uncomplicated; F17.210 Nicotine dependence, cigarettes, uncomplicated; F31.9 Bipolar disorder, unspecified; B18.2 Chronic viral hepatitis C
CPT/HCPCS: 36415; 80053; 81003; 85027; 86593; 93005; 93010

== ENCOUNTER 2016-11-20 08:34 | Inpatient (IN) | payer OTHER ==
[2016-11-20 10:10] VITALS: BMI 19.0
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
[2016-11-20] MEDS ORDERED: diphenhydrAMINE HCL 50 MG CAPSULE PO PRN (12:13)
[2016-11-20] MEDS ORDERED: P-EPHED 60MG/TRIPROLIDI 2.5MG TABLET PO PRN (12:13)
[2016-11-20] MEDS ORDERED: ACETAMINOPHEN 325 MG TABLET (FP) PO PRN (12:13)
[2016-11-20] MEDS ORDERED: NICOTINE POLACRILEX 2 MG GUM BUC PRN (12:13)
[2016-11-20] MEDS ORDERED: IBUPROFEN 400 MG TABLET (FP) PO PRN (12:13)
[2016-11-20] MEDS ORDERED: MENTHOL/PHENOL 1 EACH UD MM PRN (12:13)
[2016-11-20] MEDS ORDERED: MAG HYDROX/AL HYDROX/SIMETH 30 ML UNIT-DOSE CUP PO PRN (12:13)
[2016-11-20] MEDS ORDERED: LOPERAMIDE HCL 2 MG CAPSULE PO PRN (12:13)
[2016-11-20] MEDS ORDERED: guaiFENesin/D-METHORPHAN HB 10 ML UNIT-DOSE CUPS PO PRN (12:13)
[2016-11-20] MEDS ORDERED: MAGNESIUM CITRATE 300 ML BOTTLE PO PRN (12:13)
[2016-11-20] MEDS ORDERED: MAGNESIUM HYDROX 2400MG/30ML ORAL SUSPENSION 30 ML CUP PO PRN (12:13)
[2016-11-20] MEDS ORDERED: diazePAM 5 MG TABLET PO ONE (12:24)
[2016-11-20] MEDS ORDERED: METHADONE HCL 10 MG TABLET (FOR DETOX USE ONLY) PO ONE ×2 (12:25→23:00)
[2016-11-20] MEDS: NICOTINE 14 MG/24 HOURS TOPICAL PATCH TD SCH (12:33)
--- NOTE | 2016-11-20 14:10 | EKG ---
Test Reason : Blood Pressure : / mmHG Vent. Rate : 068 BPM Atrial Rate : 068 BPM P-R Int : 134 ms QRS Dur : 082 ms QT Int : 384 ms P-R-T Axes : 080 052 051 degrees QTc Int : 408 ms NORMAL SINUS RHYTHM NORMAL ECG WHEN COMPARED WITH ECG OF 11-OCT-2016 17:14, NO SIGNIFICANT CHANGE WAS FOUND Confirmed by YARED HI MD ([id number]) on 11/20/2016 2:10:11 PM Referred By: Benito Frias Confirmed By:YARED HI MD
[2016-11-20] MEDS: diazePAM 5 MG TABLET PO SCH ×2 (14:44→22:13)
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
[2016-11-20 17:35] LABS: URINE APPEARANCE CLEAR; URINE BILIRUBIN NEGATIVE (NEGATIVE); URINE BLOOD NEGATIVE (NEGATIVE); URINE COLOR YELLOW; URINE GLUCOSE (UA) NEGATIVE (NEGATIVE); URINE KETONE NEGATIVE (NEGATIVE); URINE LEUK ESTERASE NEGATIVE (NEGATIVE); URINE NITRITE NEGATIVE (NEGATIVE); URINE PROTEIN NEGATIVE (NEGATIVE); URINE UROBILINOGEN NEGATIVE E.U./dl (0.2-1.0)
[2016-11-20] MEDS: diazePAM 5 MG TABLET PO PRN (20:13)
[2016-11-20] MEDS: QUEtiapine FUMARATE 50 MG TABLET PO SCH (22:13)
[2016-11-20] MEDS: THIAMINE HCL 100 MG TABLET (FP) PO SCH (22:13)
[2016-11-21] MEDS: diazePAM 5 MG TABLET PO SCH ×3 (05:46→22:12)
[2016-11-21] MEDS ORDERED: METHADONE HCL 10 MG TABLET (FOR DETOX USE ONLY) PO SCH (10:00)
[2016-11-21] MEDS: NICOTINE 14 MG/24 HOURS TOPICAL PATCH TD SCH (10:04)
[2016-11-21] MEDS: PRENATAL VITAMINS W/ FOLIC ACID TABLET (FP) PO SCH (10:04)
[2016-11-21] MEDS: diazePAM 5 MG TABLET PO PRN (10:06)
[2016-11-21 10:18] LABS: MCH 29.4 pg (25.7-33.7); MCHC 33.2 g/dl (32.0-35.9); MEAN CELL VOLUME 88.8 fl (80-96); MEAN PLT VOLUME 10.2 fl (7.5-11.1); PLATELET COUNT 161 K/MM3 (134-434); RDW 13.3 % (11.9-15.9); WHITE BLOOD COUNT 3.2 K/mm3 (4.0-10.0)
--- NOTE | 2016-11-21 10:20 | PN ---
S CIWA - CIWA Score Nausea/Vomitin-No Nausea/No Vomiting Muscle Tremors: 4-Moderate,w/Arms Extend Anxiety: 4-Mod. Anxious/Guarded Agitation: 4-Moderately Restless Paroxysmal Sweats: 1-Minimal Palms Moist Orientation: 0-Oriented Tacttile Disturbances: 3-Moderate Itch/Numb/Burn Auditory Disturbances: 0-None Visual Disturbances: 0-None Headache: 0-None Present CIWA-Ar Total Score: 16 [facility] COWS - Scale Resting Pulse: 0= [place] 80 or Below Sweatin= Chills/Flushing Restless Observation: 3= Extraneous Movement Pupil Size: 2= Moderately Dilated Bone or Joint Aches: 4=Acute Joint/Muscle Pain Runny Nose/ Eye Tearin= Nasal Congestion GI Upset > 30mins: 1= Stomach Cramp Tremor Observation of Outstretched Hands: 2= Slight Tremor Visible Yawning Observation: 2= >3x During Session Anxiety or Irritability: 2=Irritable/Anxious Goose Flesh Skin: 0=Smooth Skin COWS Score: 18 S Progress Note (SOAP) Subjective: ANXIETY,SLIGHT TREMORS,INTERMITTENT SLEEP. Objective: 11/21/16 10:19 Vital Signs Temperature 97.4 F L 11/21/16 09:26 Pulse Rate 68 11/21/16 09:26 Respiratory Rate 18 11/21/16 09:26 Blood Pressure 94/61 11/21/16 09:26 O2 Sat by Pulse Oximetry (%) Laboratory Last Values Sodium 138 mmol/L (136-145) 11/21/16 06:00 Potassium 4.5 mmol/L (3.5-5.1) 11/21/16 06:00 Chloride 103 mmol/L (98-107) 11/21/16 06:00 Urine Color Yellow 11/20/16 15:00 Urine Appearance Clear 11/20/16 15:00 Urine pH 6.0 (5.0-8.0) 11/20/16 15:00 Ur Specific [place] 1.015 (1.005-1.025) 11/20/16 15:00 Urine Protein Negative (NEGATIVE) 11/20/16 15:00 Urine Glucose (UA) Negative (NEGATIVE) 11/20/16 15:00 Urine Ketones Negative (NEGATIVE) 11/20/16 15:00 Urine Blood Negative (NEGATIVE) 11/20/16 15:00 Urine Nitrite Negative (NEGATIVE) 11/20/16 15:00 Urine Bilirubin Negative (NEGATIVE) 11/20/16 15:00 Urine Urobilinogen Negative E.U./dl (0.2-1.0) 11/20/16 15:00 Ur Leukocyte Esterase Negative (NEGATIVE) 11/20/16 15:00 LABS NOTED Assessment: 11/21/16 10:20 WITHDRAWAL SX Plan: CONTINUE DETOX
[2016-11-21 10:36] LABS: ALK PHOS 72 U/L (45-117); ANION GAP 7 (8-16); BILIRUBIN,TOTAL 0.5 mg/dL (0.2-1.0); CALCIUM 9.6 mg/dL (8.5-10.1); CO2 28 mmol/L (21-32); COCKROFT - GAULT 59.71; CREATININE 1.2 mg/dL (0.7-1.3); GLUCOSE,RANDOM 101 mg/dL (74-106); SGOT/AST 25 U/L (15-37); SGPT/ALT 26 U/L (12-78); TOT PROT 7.3 g/dl (6.4-8.2)
[2016-11-21] MEDS: THIAMINE HCL 100 MG TABLET (FP) PO SCH (22:12)
[2016-11-21] MEDS: QUEtiapine FUMARATE 50 MG TABLET PO SCH (22:12)
[2016-11-22] MEDS: diazePAM 5 MG TABLET PO PRN ×3 (05:44→18:32)
--- NOTE | 2016-11-22 10:04 | PN ---
[facility] CIWA - CIWA Score Nausea/Vomitin-No Nausea/No Vomiting Muscle Tremors: 4-Moderate,w/Arms Extend Anxiety: 4-Mod. Anxious/Guarded Agitation: 4-Moderately Restless Paroxysmal Sweats: 2 Orientation: 0-Oriented Tacttile Disturbances: 2-Mild Itch/Numbness/Burn Auditory Disturbances: 0-None Visual Disturbances: 0-None Headache: 0-None Present CIWA-Ar Total Score: 16 [facility] COWS - Scale Resting Pulse: 0= [place] 80 or Below Sweatin= Chills/Flushing Restless Observation: 3= Extraneous Movement Pupil Size: 0= Normal to Room Light Bone or Joint Aches: 2= Severe Diffuse Aches Runny Nose/ Eye Tearin= Nasal Congestion GI Upset > 30mins: 1= Stomach Cramp Tremor Observation of Outstretched Hands: 2= Slight Tremor Visible Yawning Observation: 1= 1-2x During Session Anxiety or Irritability: 2=Irritable/Anxious Goose Flesh Skin: 0=Smooth Skin COWS Score: 13 [facility] Progress Note (SOAP) Subjective: ANXIETY,SWEATS,INTERMITTENT SLEEP. Objective: 11/22/16 10:09 Vital Signs Temperature 98 F 11/22/16 09:44 Pulse Rate 71 11/22/16 09:44 Respiratory Rate 20 11/22/16 09:44 Blood Pressure 99/63 11/22/16 09:44 O2 Sat by Pulse Oximetry (%) Laboratory Last Values WBC 3.2 K/mm3 (4.0-10.0) L D 11/21/16 06:00 RBC 4.69 M/mm3 (4.00-5.60) 11/21/16 06:00 Hgb 13.8 GM/dL (11.7-16.9) 11/21/16 06:00 Hct 41.6 % (35.4-49) 11/21/16 06:00 MCV 88.8 fl (80-96) 11/21/16 06:00 MCHC 33.2 g/dl (32.0-35.9) 11/21/16 06:00 RDW 13.3 % (11.9-15.9) 11/21/16 06:00 Plt Count 161 K/MM3 (134-434) 11/21/16 06:00 MPV 10.2 fl (7.5-11.1) 11/21/16 06:00 Sodium 138 mmol/L (136-145) 11/21/16 06:00 Potassium 4.5 mmol/L (3.5-5.1) 11/21/16 06:00 Chloride 103 mmol/L (98-107) 11/21/16 06:00 Carbon Dioxide 28 mmol/L (21-32) 11/21/16 06:00 Anion Gap 7 (8-16) L 11/21/16 06:00 BUN 11 mg/dL (7-18) D 11/21/16 06:00 Creatinine 1.2 mg/dL (0.7-1.3) 11/21/16 06:00 Creat Clearance w eGFR > 60 (>60) 11/21/16 06:00 Random Glucose 101 mg/dL (74-106) 11/21/16 06:00 Calcium 9.6 mg/dL (8.5-10.1) 11/21/16 06:00 Total Bilirubin 0.5 mg/dL (0.2-1.0) D 11/21/16 06:00 AST 25 U/L (15-37) 11/21/16 06:00 ALT 26 U/L (12-78) 11/21/16 06:00 Alkaline Phosphatase 72 U/L (45-117) D 11/21/16 06:00 Total Protein 7.3 g/dl (6.4-8.2) 11/21/16 06:00 Albumin 4.0 g/dl (3.4-5.0) 11/21/16 06:00 Urine Color Yellow 11/20/16 15:00 Urine Appearance Clear 11/20/16 15:00 Urine pH 6.0 (5.0-8.0) 11/20/16 15:00 Ur Specific [place] 1.015 (1.005-1.025) 11/20/16 15:00 Urine Protein Negative (NEGATIVE) 11/20/16 15:00 Urine Glucose (UA) Negative (NEGATIVE) 11/20/16 15:00 Urine Ketones Negative (NEGATIVE) 11/20/16 15:00 Urine Blood Negative (NEGATIVE) 11/20/16 15:00 Urine Nitrite Negative (NEGATIVE) 11/20/16 15:00 Urine Bilirubin Negative (NEGATIVE) 11/20/16 15:00 Urine Urobilinogen Negative E.U./dl (0.2-1.0) 11/20/16 15:00 Ur Leukocyte Esterase Negative (NEGATIVE) 11/20/16 15:00 RPR Titer Nonreactive (NONREACTIVE) 11/21/16 06:00 Assessment: 11/22/16 10:10 WITHDRAWAL SX Plan: CONTINUE DETOX
[2016-11-22] MEDS: PRENATAL VITAMINS W/ FOLIC ACID TABLET (FP) PO SCH (10:06)
[2016-11-22] MEDS: NICOTINE 14 MG/24 HOURS TOPICAL PATCH TD SCH (10:06)
[2016-11-22] MEDS: METHADONE HCL 5 MG TABLET (FOR DETOX USE ONLY) PO SCH (10:07)
[2016-11-22] MEDS: diazePAM 5 MG TABLET PO SCH ×2 (10:07→22:11)
[2016-11-22] MEDS: QUEtiapine FUMARATE 50 MG TABLET PO SCH (22:11)
[2016-11-22] MEDS: THIAMINE HCL 100 MG TABLET (FP) PO SCH (22:11)
[2016-11-23] MEDS: diazePAM 5 MG TABLET PO PRN ×2 (05:55→12:10)
[2016-11-23] MEDS: METHADONE HCL 5 MG TABLET (FOR DETOX USE ONLY) PO SCH (10:13)
[2016-11-23] MEDS: diazePAM 5 MG TABLET PO SCH ×2 (10:13→22:10)
[2016-11-23] MEDS: PRENATAL VITAMINS W/ FOLIC ACID TABLET (FP) PO SCH (10:13)
[2016-11-23] MEDS: NICOTINE 14 MG/24 HOURS TOPICAL PATCH TD SCH (10:14)
--- NOTE | 2016-11-23 11:55 | PN ---
S Progress Note (SOAP) Subjective: ANXIETY, SWEATS,FATIGUE. Objective: 11/23/16 11:41 Vital Signs Temperature 96.6 F L 11/23/16 09:08 Pulse Rate 73 11/23/16 09:08 Respiratory Rate 18 11/23/16 09:08 Blood Pressure 101/67 11/23/16 09:08 O2 Sat by Pulse Oximetry (%) Laboratory Last Values WBC 3.2 K/mm3 (4.0-10.0) L D 11/21/16 06:00 RBC 4.69 M/mm3 (4.00-5.60) 11/21/16 06:00 Hgb 13.8 GM/dL (11.7-16.9) 11/21/16 06:00 Hct 41.6 % (35.4-49) 11/21/16 06:00 MCV 88.8 fl (80-96) 11/21/16 06:00 MCHC 33.2 g/dl (32.0-35.9) 11/21/16 06:00 RDW 13.3 % (11.9-15.9) 11/21/16 06:00 Plt Count 161 K/MM3 (134-434) 11/21/16 06:00 MPV 10.2 fl (7.5-11.1) 11/21/16 06:00 Sodium 138 mmol/L (136-145) 11/21/16 06:00 Potassium 4.5 mmol/L (3.5-5.1) 11/21/16 06:00 Chloride 103 mmol/L (98-107) 11/21/16 06:00 Carbon Dioxide 28 mmol/L (21-32) 11/21/16 06:00 Anion Gap 7 (8-16) L 11/21/16 06:00 BUN 11 mg/dL (7-18) D 11/21/16 06:00 Creatinine 1.2 mg/dL (0.7-1.3) 11/21/16 06:00 Creat Clearance w eGFR > 60 (>60) 11/21/16 06:00 Random Glucose 101 mg/dL (74-106) 11/21/16 06:00 Calcium 9.6 mg/dL (8.5-10.1) 11/21/16 06:00 Total Bilirubin 0.5 mg/dL (0.2-1.0) D 11/21/16 06:00 AST 25 U/L (15-37) 11/21/16 06:00 ALT 26 U/L (12-78) 11/21/16 06:00 Alkaline Phosphatase 72 U/L (45-117) D 11/21/16 06:00 Total Protein 7.3 g/dl (6.4-8.2) 11/21/16 06:00 Albumin 4.0 g/dl (3.4-5.0) 11/21/16 06:00 Urine Color Yellow 11/20/16 15:00 Urine Appearance Clear 11/20/16 15:00 Urine pH 6.0 (5.0-8.0) 11/20/16 15:00 Ur Specific [place] 1.015 (1.005-1.025) 11/20/16 15:00 Urine Protein Negative (NEGATIVE) 11/20/16 15:00 Urine Glucose (UA) Negative (NEGATIVE) 11/20/16 15:00 Urine Ketones Negative (NEGATIVE) 11/20/16 15:00 Urine Blood Negative (NEGATIVE) 11/20/16 15:00 Urine Nitrite Negative (NEGATIVE) 11/20/16 15:00 Urine Bilirubin Negative (NEGATIVE) 11/20/16 15:00 Urine Urobilinogen Negative E.U./dl (0.2-1.0) 11/20/16 15:00 Ur Leukocyte Esterase Negative (NEGATIVE) 11/20/16 15:00 RPR Titer Nonreactive (NONREACTIVE) 11/21/16 06:00 Assessment: 11/23/16 11:41 WITHDRAWAL SX Plan: CONTINUE DETOX
[2016-11-23] MEDS: QUEtiapine FUMARATE 50 MG TABLET PO SCH (22:10)
[2016-11-23] MEDS: THIAMINE HCL 100 MG TABLET (FP) PO SCH (22:10)
[2016-11-24 09:52] VITALS: BP 104/72; PULSE 77; TEMP 97.7
[2016-11-24] MEDS ORDERED: METHADONE HCL 10 MG TABLET (FOR DETOX USE ONLY) PO SCH (10:00)
[2016-11-24] MEDS ORDERED: diazePAM 5 MG TABLET PO SCH (10:00)
[2016-11-24] MEDS: PRENATAL VITAMINS W/ FOLIC ACID TABLET (FP) PO SCH (10:03)
[2016-11-24] MEDS: NICOTINE 14 MG/24 HOURS TOPICAL PATCH TD SCH (10:03)
--- NOTE | 2016-11-24 10:31 | PN ---
[facility] Progress Note (SOAP) Subjective: RESPONDING WELL TO PROTOCOL.DECREASED ANXIETY,TREMORS,SWEATS. Objective: 11/24/16 10:30 Vital Signs Temperature 97.7 F 11/24/16 09:51 Pulse Rate 77 11/24/16 09:51 Respiratory Rate 18 11/24/16 09:51 Blood Pressure 104/72 11/24/16 09:51 O2 Sat by Pulse Oximetry (%) Assessment: 11/24/16 10:30 DECREASED W/S Plan: CONTINUE DETOX PROTOCOL
--- NOTE | 2016-11-24 15:31 | DS ---
[facility] Detox Discharge Summary Admission Date: 11/20/16 Discharge Date: 11/24/16 - History Additional Comments: DECLINED TO COMPLETE DETOX FOR PERSONAL REASONS STATING HE FEELS OK AND WANTS TO GO HOME. PT ALERT O X 3. NAD. Pertinent Past History: HEP C - Physical Exam Results Vital Signs: Vital Signs Temperature 97.7 F 11/24/16 09:51 Pulse Rate 77 11/24/16 09:51 Respiratory Rate 18 11/24/16 09:51 Blood Pressure 104/72 11/24/16 09:51 O2 Sat by Pulse Oximetry (%) Pertinent Admission Physical Exam Findings: WITHDRAWAL SX - Treatment Hospital Course: Discharged Condition Good - Medication Discharge Medications: Ambulatory Orders NK [No Known Home Medication] 10/11/16 - Diagnosis (1) Hepatitis C Status: Chronic Qualifiers: Viral hepatitis chronicity: chronic Hepatic coma status: without hepatic coma Qualified Code(s): B18.2 - Chronic viral hepatitis C (2) Nicotine dependence Status: Acute Qualifiers: Nicotine product type: cigarettes Substance use status: in withdrawal Qualified Code(s): F17.213 - Nicotine dependence, cigarettes, with withdrawal (3) Opioid dependence with withdrawal Status: Acute (4) Sedative, hypnotic or anxiolytic dependence with withdrawal, uncomplicated Status: Acute (5) Abscess of left upper extremity Status: Resolved - AMA Did Patient Leave Against Medical Advice: Yes (AMA)
[2016-11-25] MEDS ORDERED: METHADONE HCL 5 MG TABLET (FOR DETOX USE ONLY) PO SCH (06:00)
== END 2016-11-24 13:00 | disposition left against medical advice (07) | DRG 770 ==
LOC: YASAS 08:34 → Y3N 11:31
PROVIDERS: ADMIT Internal Medicine; ATTEND Internal Medicine
PROC: HZ2ZZZZ Detoxification Services for Substance Abuse Treatment (ICD-10-PCS; principal; 2016-11-20)
DX: F11.23 Opioid dependence with withdrawal (principal); F13.230 Sedative, hypnotic or anxiolytic dependence with withdrawal, uncomplicated; F17.213 Nicotine dependence, cigarettes, with withdrawal; F31.9 Bipolar disorder, unspecified; B18.2 Chronic viral hepatitis C; G47.00 Insomnia, unspecified; L02.419 Cutaneous abscess of limb, unspecified
CPT/HCPCS: 36415; 80053; 81003; 85027; 86593; 93005; 93010

== ENCOUNTER 2017-02-27 10:54 | Inpatient (IN) | payer OTHER ==
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
[2017-02-27] MEDS ORDERED: LOPERAMIDE HCL 2 MG CAPSULE PO PRN (12:20)
[2017-02-27] MEDS ORDERED: hydrOXYzine PAMOATE 50 MG CAPSULE (FP) PO PRN (12:20)
[2017-02-27] MEDS ORDERED: MAGNESIUM CITRATE 300 ML BOTTLE PO PRN (12:20)
[2017-02-27] MEDS ORDERED: guaiFENesin/D-METHORPHAN HB 10 ML UNIT-DOSE CUPS PO PRN (12:20)
[2017-02-27] MEDS ORDERED: MAGNESIUM HYDROX 2400MG/30ML ORAL SUSPENSION 30 ML CUP PO PRN (12:20)
[2017-02-27] MEDS ORDERED: ACETAMINOPHEN 325 MG TABLET (FP) PO PRN (12:20)
[2017-02-27] MEDS ORDERED: diphenhydrAMINE HCL 50 MG CAPSULE PO PRN (12:20)
[2017-02-27] MEDS ORDERED: P-EPHED 60MG/TRIPROLIDI 2.5MG TABLET PO PRN (12:20)
[2017-02-27] MEDS ORDERED: MAG HYDROX/AL HYDROX/SIMETH 30 ML UNIT-DOSE CUP PO PRN (12:20)
[2017-02-27] MEDS ORDERED: MENTHOL/PHENOL 1 EACH UD MM PRN (12:20)
[2017-02-27] MEDS ORDERED: IBUPROFEN 400 MG TABLET (FP) PO PRN (12:20)
[2017-02-27] MEDS ORDERED: METHADONE HCL 10 MG TABLET (FOR DETOX USE ONLY) PO ONE ×2 (13:45→23:00)
[2017-02-27] MEDS: diazePAM 5 MG TABLET PO PRN ×2 (14:15→19:46)
--- NOTE | 2017-02-27 16:42 | CONSULT ---
[facility] Psychiatric Consult - Data Date of interview: 02/27/17 Admission source: [facility] Identifying data: This is one of the multiple admissions to detox for this 51 yo single H male,residing alone,supported by PA.Admitted for Benzo,Opioid dependence. Substance Abuse History: Reports heroin since 45 years old injection,5-10 bags daily,Xanax since45 years old,4-6 g daily. Medical History: Significant for Hep C. Psychiatric History: reports being dx with Bipolar disorder since 2009,3 psychiatric hospitalizations.Currently he sees psychiatrist at [facility].Medications:Ambien 10 mg po hs PRN for insomnia.He is not on mood stabilizers or antidepressants and is not willing to restart it at present. Physical/Sexual Abuse/Trauma History: denies. Mental Status Exam - Mental Status Exam Alert and Oriented to: Time, Place, Person Cognitive Function: Grossly Intact Patient Appearance: Unkempt Mood: Anxious Affect: Mood Congruent Patient Behavior: Cooperative Speech Pattern: Clear Voice Loudness: Normal Thought Process: Goal Oriented Hallucinations: Denies Suicidal Ideation: Denies Homicidal Ideation: Denies Insight/Judgement: Fair Sleep: Difficulty falling asleep Appetite: Fair Muscle strength/Tone: Normal Gait/Station: Normal Psychiatric Findings - Problem List ([place] 1, 2,3) (1) Nicotine dependence Current Visit: Yes Status: Chronic Qualifiers: Nicotine product type: cigarettes Substance use status: in withdrawal Qualified Code(s): F17.213 - Nicotine dependence, cigarettes, with withdrawal (2) Opioid dependence with withdrawal Current Visit: Yes Status: Chronic (3) Sedative, hypnotic or anxiolytic dependence with withdrawal, uncomplicated Current Visit: Yes Status: Chronic (4) Bipolar disorder Current Visit: Yes Status: Chronic (5) Hepatitis C Current Visit: Yes Status: Chronic Qualifiers: Viral hepatitis chronicity: chronic Hepatic coma status: without hepatic coma Qualified Code(s): B18.2 - Chronic viral hepatitis C - Initial Treatment Plan Initial Treatment Plan: Will monitor progress.Ambien 10 mg po hs prn for insomnia.
[2017-02-27 17:11] LABS: URINE APPEARANCE CLEAR; URINE BILIRUBIN NEGATIVE (NEGATIVE); URINE BLOOD NEGATIVE (NEGATIVE); URINE COLOR YELLOW; URINE GLUCOSE (UA) NEGATIVE (NEGATIVE); URINE KETONE NEGATIVE (NEGATIVE); URINE LEUK ESTERASE NEGATIVE (NEGATIVE); URINE NITRITE NEGATIVE (NEGATIVE); URINE PROTEIN NEGATIVE (NEGATIVE); URINE UROBILINOGEN NEGATIVE mg/dL (0.2-1.0)
--- NOTE | 2017-02-27 22:14 | EKG ---
Test Reason : Blood Pressure : / mmHG Vent. Rate : 077 BPM Atrial Rate : 077 BPM P-R Int : 138 ms QRS Dur : 074 ms QT Int : 378 ms P-R-T Axes : 081 062 056 degrees QTc Int : 427 ms NORMAL SINUS RHYTHM NORMAL ECG WHEN COMPARED WITH ECG OF 20-NOV-2016 11:45, NO SIGNIFICANT CHANGE WAS FOUND Confirmed by MAGDY CHRISTINE MD ([id number]) on 02/27/2017 10:14:09 PM Referred By: Confirmed By:MAGDY CHRISTINE MD
[2017-02-27] MEDS: THIAMINE HCL 100 MG TABLET (FP) PO SCH (22:29)
[2017-02-27] MEDS: cloNIDine HCL 0.1 MG TABLET PO SCH (22:29)
[2017-02-27] MEDS: ZOLPIDEM TARTRATE 10 MG TABLET (PARK CARE ONLY) PO PRN (22:29)
[2017-02-28] MEDS: diazePAM 5 MG TABLET PO PRN ×4 (04:53→22:50)
[2017-02-28] MEDS: CYCLOBENZAPRINE HCL 10 MG TABLET (FP) PO PRN (04:53)
[2017-02-28] MEDS ORDERED: METHADONE HCL 10 MG TABLET (FOR DETOX USE ONLY) PO ONE (10:00)
[2017-02-28 10:14] LABS: MCH 28.8 pg (25.7-33.7); MEAN CELL VOLUME 87.1 fl (80-96); MEAN PLT VOLUME 9.4 fl (7.5-11.1); PLATELET COUNT 275 K/MM3 (134-434); RDW 13.3 % (11.9-15.9)
[2017-02-28 10:20] LABS: ALBUMIN 4.1 g/dl (3.4-5.0); ANION GAP 5 (8-16); BILIRUBIN,TOTAL 0.6 mg/dL (0.2-1.0); CO2 29 mmol/L (21-32); CREATININE 1.3 mg/dL (0.7-1.3); GLUCOSE,RANDOM 95 mg/dL (74-106); SGOT/AST 38 U/L (15-37); SGPT/ALT 31 U/L (12-78); TOT PROT 8.2 g/dl (6.4-8.2)
[2017-02-28 10:21] LABS: ALK PHOS 95 U/L (45-117)
[2017-02-28] MEDS: PRENATAL VITAMINS W/ FOLIC ACID TABLET (FP) PO SCH (10:39)
[2017-02-28] MEDS: cloNIDine HCL 0.1 MG TABLET PO SCH ×2 (10:39→22:49)
--- NOTE | 2017-02-28 12:35 | PN ---
BHS COWS - Scale Resting Pulse: 0= [place] 80 or Below Sweatin= Chills/Flushing Restless Observation: 3= Extraneous Movement Pupil Size: 2= Moderately Dilated Bone or Joint Aches: 4=Acute Joint/Muscle Pain Runny Nose/ Eye Tearin= Nasal Congestion GI Upset > 30mins: 1= Stomach Cramp Tremor Observation of Outstretched Hands: 1= Tremor [place], Not Seen Yawning Observation: 2= >3x During Session Anxiety or Irritability: 2=Irritable/Anxious Goose Flesh Skin: 0=Smooth Skin COWS Score: 17 BHS Progress Note (SOAP) Subjective: ANXIETY,SWEATS,FATIGUE. Objective: 02/28/17 12:34 Vital Signs Temperature 98.3 F 02/28/17 09:32 Pulse Rate 79 02/28/17 09:32 Respiratory Rate 16 02/28/17 09:32 Blood Pressure 93/61 02/28/17 09:32 O2 Sat by Pulse Oximetry (%) Laboratory Last Values WBC 4.0 K/mm3 (4.0-10.0) 02/28/17 06:00 RBC 4.87 M/mm3 (4.00-5.60) 02/28/17 06:00 Hgb 14.0 GM/dL (11.7-16.9) 02/28/17 06:00 Hct 42.4 % (35.4-49) 02/28/17 06:00 MCV 87.1 fl (80-96) 02/28/17 06:00 MCH 28.8 pg (25.7-33.7) 02/28/17 06:00 MCHC 33.0 g/dl (32.0-35.9) 02/28/17 06:00 RDW 13.3 % (11.9-15.9) 02/28/17 06:00 Plt Count 275 K/MM3 (134-434) D 02/28/17 06:00 MPV 9.4 fl (7.5-11.1) 02/28/17 06:00 Sodium 138 mmol/L (136-145) 02/28/17 06:00 Potassium 4.5 mmol/L (3.5-5.1) 02/28/17 06:00 Chloride 104 mmol/L (98-107) 02/28/17 06:00 Carbon Dioxide 29 mmol/L (21-32) 02/28/17 06:00 Anion Gap 5 (8-16) L 02/28/17 06:00 BUN 15 mg/dL (7-18) D 02/28/17 06:00 Creatinine 1.3 mg/dL (0.7-1.3) 02/28/17 06:00 Creat Clearance w eGFR 58.67 (>60) 02/28/17 06:00 Random Glucose 95 mg/dL (74-106) 02/28/17 06:00 Calcium 10.0 mg/dL (8.5-10.1) 02/28/17 06:00 Total Bilirubin 0.6 mg/dL (0.2-1.0) 02/28/17 06:00 AST 38 U/L (15-37) H D 02/28/17 06:00 ALT 31 U/L (12-78) 02/28/17 06:00 Alkaline Phosphatase 95 U/L (45-117) D 02/28/17 06:00 Total Protein 8.2 g/dl (6.4-8.2) 02/28/17 06:00 Albumin 4.1 g/dl (3.4-5.0) 02/28/17 06:00 Urine Color Yellow 02/27/17 15:00 Urine Appearance Clear 02/27/17 15:00 Urine pH 5.0 (5.0-8.0) 02/27/17 15:00 Ur Specific [place] 1.015 (1.005-1.025) 02/27/17 15:00 Urine Protein Negative (NEGATIVE) 02/27/17 15:00 Urine Glucose (UA) Negative (NEGATIVE) 02/27/17 15:00 Urine Ketones Negative (NEGATIVE) 02/27/17 15:00 Urine Blood Negative (NEGATIVE) 02/27/17 15:00 Urine Nitrite Negative (NEGATIVE) 02/27/17 15:00 Urine Bilirubin Negative (NEGATIVE) 02/27/17 15:00 Urine Urobilinogen Negative mg/dL (0.2-1.0) 02/27/17 15:00 Assessment: 02/28/17 12:35 WITHDRAWAL SX Plan: CONTINUE DETOX INCREASE PO FLUIDS
[2017-02-28] MEDS: THIAMINE HCL 100 MG TABLET (FP) PO SCH (22:46)
[2017-02-28] MEDS: ZOLPIDEM TARTRATE 10 MG TABLET (PARK CARE ONLY) PO PRN (22:46)
[2017-03-01] MEDS: CYCLOBENZAPRINE HCL 10 MG TABLET (FP) PO PRN (05:45)
[2017-03-01] MEDS: diazePAM 5 MG TABLET PO PRN ×4 (05:45→23:32)
[2017-03-01] MEDS ORDERED: METHADONE HCL 5 MG TABLET (FOR DETOX USE ONLY) PO ONE (10:00)
[2017-03-01] MEDS: cloNIDine HCL 0.1 MG TABLET PO SCH ×2 (10:52→22:34)
[2017-03-01] MEDS: PRENATAL VITAMINS W/ FOLIC ACID TABLET (FP) PO SCH (10:52)
--- NOTE | 2017-03-01 14:08 | PN ---
BHS COWS - Scale Resting Pulse: 0= [place] 80 or Below Sweatin= Chills/Flushing Restless Observation: 3= Extraneous Movement Pupil Size: 0= Normal to Room Light Bone or Joint Aches: 4=Acute Joint/Muscle Pain Runny Nose/ Eye Tearin= Nasal Congestion GI Upset > 30mins: 1= Stomach Cramp Tremor Observation of Outstretched Hands: 1= Tremor [place], Not Seen Yawning Observation: 1= 1-2x During Session Anxiety or Irritability: 1=Feels Anxious/Irritable Goose Flesh Skin: 0=Smooth Skin COWS Score: 13 S Progress Note (SOAP) Subjective: ANXIETY,SWEATS,FATIGUE. Objective: 03/01/17 14:07 Vital Signs Temperature 96.9 F L 03/01/17 13:41 Pulse Rate 67 03/01/17 13:41 Respiratory Rate 18 03/01/17 13:41 Blood Pressure 95/49 03/01/17 13:41 O2 Sat by Pulse Oximetry (%) Laboratory Last Values WBC 4.0 K/mm3 (4.0-10.0) 02/28/17 06:00 RBC 4.87 M/mm3 (4.00-5.60) 02/28/17 06:00 Hgb 14.0 GM/dL (11.7-16.9) 02/28/17 06:00 Hct 42.4 % (35.4-49) 02/28/17 06:00 MCV 87.1 fl (80-96) 02/28/17 06:00 MCH 28.8 pg (25.7-33.7) 02/28/17 06:00 MCHC 33.0 g/dl (32.0-35.9) 02/28/17 06:00 RDW 13.3 % (11.9-15.9) 02/28/17 06:00 Plt Count 275 K/MM3 (134-434) D 02/28/17 06:00 MPV 9.4 fl (7.5-11.1) 02/28/17 06:00 Sodium 138 mmol/L (136-145) 02/28/17 06:00 Potassium 4.5 mmol/L (3.5-5.1) 02/28/17 06:00 Chloride 104 mmol/L (98-107) 02/28/17 06:00 Carbon Dioxide 29 mmol/L (21-32) 02/28/17 06:00 Anion Gap 5 (8-16) L 02/28/17 06:00 BUN 15 mg/dL (7-18) D 02/28/17 06:00 Creatinine 1.3 mg/dL (0.7-1.3) 02/28/17 06:00 Creat Clearance w eGFR 58.67 (>60) 02/28/17 06:00 Random Glucose 95 mg/dL (74-106) 02/28/17 06:00 Calcium 10.0 mg/dL (8.5-10.1) 02/28/17 06:00 Total Bilirubin 0.6 mg/dL (0.2-1.0) 02/28/17 06:00 AST 38 U/L (15-37) H D 02/28/17 06:00 ALT 31 U/L (12-78) 02/28/17 06:00 Alkaline Phosphatase 95 U/L (45-117) D 02/28/17 06:00 Total Protein 8.2 g/dl (6.4-8.2) 02/28/17 06:00 Albumin 4.1 g/dl (3.4-5.0) 02/28/17 06:00 Urine Color Yellow 02/27/17 15:00 Urine Appearance Clear 02/27/17 15:00 Urine pH 5.0 (5.0-8.0) 02/27/17 15:00 Ur Specific [place] 1.015 (1.005-1.025) 02/27/17 15:00 Urine Protein Negative (NEGATIVE) 02/27/17 15:00 Urine Glucose (UA) Negative (NEGATIVE) 02/27/17 15:00 Urine Ketones Negative (NEGATIVE) 02/27/17 15:00 Urine Blood Negative (NEGATIVE) 02/27/17 15:00 Urine Nitrite Negative (NEGATIVE) 02/27/17 15:00 Urine Bilirubin Negative (NEGATIVE) 02/27/17 15:00 Urine Urobilinogen Negative mg/dL (0.2-1.0) 02/27/17 15:00 RPR Titer Nonreactive (NONREACTIVE) 02/28/17 06:00 Assessment: 03/01/17 14:07 WITHDRAWAL SX Plan: CONTINUE DETOX INCREASE PO FLUIDS.
[2017-03-01] MEDS: THIAMINE HCL 100 MG TABLET (FP) PO SCH (22:32)
[2017-03-01] MEDS: ZOLPIDEM TARTRATE 10 MG TABLET (PARK CARE ONLY) PO PRN (23:31)
[2017-03-02] MEDS: diazePAM 5 MG TABLET PO PRN (05:57)
[2017-03-02 09:52] VITALS: BP 100/62; PULSE 74; TEMP 96.5
[2017-03-02] MEDS ORDERED: METHADONE HCL 5 MG TABLET (FOR DETOX USE ONLY) PO ONE (10:00)
--- NOTE | 2017-03-02 12:46 | DS ---
[facility] Detox Discharge Summary Admission Date: 02/27/17 Discharge Date: 03/02/17 - History Present History: Opioid Dependence, Sedative Dependence Additional Comments: PATIENT DOES NOT WISH TO STAY TO COMPLETE DETOX REGIMEN. PATIENT ADVISED TO GO IMMEDIATELY TO NEAREST ER SHOULD ANY INTOLERABLE DETOX SYMPTOMS DEVELOP AT ANY TIME. PATIENT LEFT DETOX UNIT IN STABLE MEDICAL CONDITION. Pertinent Past History: Hep C, Bipolar disorder, Insomnia, Nicotine Dependence. - Physical Exam Results Vital Signs: Vital Signs Temperature 96.5 F L 03/02/17 09:51 Pulse Rate 74 03/02/17 09:51 Respiratory Rate 18 03/02/17 09:51 Blood Pressure 100/62 03/02/17 09:51 O2 Sat by Pulse Oximetry (%) Pertinent Admission Physical Exam Findings: WITHDRAWAL SYMPTOMS. Laboratory Tests 02/27/17 02/28/17 02/28/17 15:00 06:00 06:00 WBC 4.0 RBC 4.87 Hgb 14.0 Hct 42.4 MCV 87.1 MCH 28.8 MCHC 33.0 RDW 13.3 Plt Count 275 D MPV 9.4 Sodium 138 Potassium 4.5 Chloride 104 Carbon Dioxide 29 Anion Gap 5 L BUN 15 D Creatinine 1.3 Creat Clearance w eGFR 58.67 Random Glucose 95 Calcium 10.0 Total Bilirubin 0.6 AST 38 H D ALT 31 Alkaline Phosphatase 95 D Total Protein 8.2 Albumin 4.1 Urine Color Yellow Urine Appearance Clear Urine pH 5.0 Ur Specific [place] 1.015 Urine Protein Negative Urine Glucose (UA) Negative Urine Ketones Negative Urine Blood Negative Urine Nitrite Negative Urine Bilirubin Negative Urine Urobilinogen Negative RPR Titer 02/28/17 06:00 WBC RBC Hgb Hct MCV MCH MCHC RDW Plt Count MPV Sodium Potassium Chloride Carbon Dioxide Anion Gap BUN Creatinine Creat Clearance w eGFR Random Glucose Calcium Total Bilirubin AST ALT Alkaline Phosphatase Total Protein Albumin Urine Color Urine Appearance Urine pH Ur Specific [place] Urine Protein Urine Glucose (UA) Urine Ketones Urine Blood Urine Nitrite Urine Bilirubin Urine Urobilinogen RPR Titer Nonreactive LABS NOTED. - Treatment Hospital Course: Detoxed Safely - Medication Discharge Medications: Ambulatory Orders NK [No Known Home Medication] 10/11/16 - Diagnosis (1) Insomnia Status: Acute Qualifiers: Insomnia type: unspecified Qualified Code(s): G47.00 - Insomnia, unspecified (2) Bipolar disorder Status: Chronic Qualifiers: Active/Remission status: remission status unspecified Qualified Code (s): F31.9 - Bipolar disorder, unspecified (3) Hepatitis C Status: Chronic Qualifiers: Viral hepatitis chronicity: chronic Hepatic coma status: without hepatic coma Qualified Code(s): B18.2 - Chronic viral hepatitis C (4) Nicotine dependence Status: Chronic Qualifiers: Nicotine product type: cigarettes Substance use status: in withdrawal Qualified Code(s): F17.213 - Nicotine dependence, cigarettes, with withdrawal (5) Opioid dependence with withdrawal Status: Acute (6) Sedative, hypnotic or anxiolytic dependence with withdrawal, uncomplicated Status: Acute - AMA Did Patient Leave Against Medical Advice: Yes (PATIENT DID NOT WISH TO STAY TO COMPLETE DETOX REGIMEN.)
[2017-03-03] MEDS ORDERED: METHADONE HCL 10 MG TABLET (FOR DETOX USE ONLY) PO ONE (10:00)
[2017-03-04] MEDS ORDERED: METHADONE HCL 5 MG TABLET (FOR DETOX USE ONLY) PO ONE (06:00)
== END 2017-03-02 10:09 | disposition left against medical advice (07) | DRG 770 ==
LOC: YASAS 10:54 → Y3N 13:19
PROVIDERS: ADMIT Internal Medicine; ATTEND Internal Medicine
PROC: HZ2ZZZZ Detoxification Services for Substance Abuse Treatment (ICD-10-PCS; principal; 2017-02-27)
DX: F11.23 Opioid dependence with withdrawal (principal); F13.230 Sedative, hypnotic or anxiolytic dependence with withdrawal, uncomplicated; F17.213 Nicotine dependence, cigarettes, with withdrawal; F31.9 Bipolar disorder, unspecified; G47.00 Insomnia, unspecified; B18.2 Chronic viral hepatitis C
CPT/HCPCS: 36415; 80053; 81003; 85027; 86593; 93005; 93010

== ENCOUNTER 2017-12-19 10:20 | Inpatient (IN) | payer OTHER ==
[2017-12-19 11:01] VITALS: BMI 19.4
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
[2017-12-19] MEDS ORDERED: LOPERAMIDE HCL 2 MG CAPSULE PO PRN (12:02)
[2017-12-19] MEDS ORDERED: MAGNESIUM HYDROX 2400MG/30ML ORAL SUSPENSION 30 ML CUP PO PRN (12:02)
[2017-12-19] MEDS ORDERED: P-EPHED 60MG/TRIPROLIDI 2.5MG TABLET PO PRN (12:02)
[2017-12-19] MEDS ORDERED: ACETAMINOPHEN 325 MG TABLET (FP) PO PRN (12:02)
[2017-12-19] MEDS ORDERED: MAG HYDROX/AL HYDROX/SIMETH 30 ML UNIT-DOSE CUP PO PRN (12:02)
[2017-12-19] MEDS ORDERED: guaiFENesin/D-METHORPHAN HB 10 ML UNIT-DOSE CUPS PO PRN (12:02)
[2017-12-19] MEDS ORDERED: MAGNESIUM CITRATE 300 ML BOTTLE PO PRN (12:02)
[2017-12-19] MEDS ORDERED: MENTHOL/PHENOL 1 EACH UD MM PRN (12:02)
[2017-12-19] MEDS ORDERED: NICOTINE POLACRILEX 2 MG GUM BUC PRN (12:02)
[2017-12-19] MEDS ORDERED: diazePAM 5 MG TABLET PO ONE (14:15)
[2017-12-19] MEDS ORDERED: METHADONE HCL 10 MG TABLET (FOR DETOX USE ONLY) PO ONE ×2 (14:15→23:00)
[2017-12-19] MEDS: NICOTINE 14 MG/24 HOURS TOPICAL PATCH TD SCH (14:26)
[2017-12-19] MEDS: diazePAM 5 MG TABLET PO SCH ×2 (14:27→22:38)
--- NOTE | 2017-12-19 14:28 | EKG ---
Test Reason : Blood Pressure : / mmHG Vent. Rate : 069 BPM Atrial Rate : 069 BPM P-R Int : 140 ms QRS Dur : 072 ms QT Int : 384 ms P-R-T Axes : 080 066 061 degrees QTc Int : 411 ms NORMAL SINUS RHYTHM NORMAL ECG WHEN COMPARED WITH ECG OF 25-APR-2017 13:47, NO SIGNIFICANT CHANGE WAS FOUND Confirmed by SALLY SHELLEY MD ([id number]) on 12/19/2017 2:28:23 PM Referred By: Confirmed By:SALLY SHELLEY MD
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
[2017-12-19] MEDS: IBUPROFEN 400 MG TABLET (FP) PO PRN (20:32)
[2017-12-19] MEDS: diazePAM 5 MG TABLET PO PRN (20:36)
[2017-12-19] MEDS ORDERED: MELATONIN 5 MG TABLETS PO PRN (22:00)
[2017-12-19] MEDS: MIRTAZAPINE 15 MG TABLET (FP) PO SCH (22:38)
[2017-12-19] MEDS: THIAMINE HCL 100 MG TABLET (FP) PO SCH (22:38)
[2017-12-20] MEDS: diazePAM 5 MG TABLET PO SCH ×3 (06:07→22:36)
[2017-12-20] MEDS ORDERED: METHADONE HCL 10 MG TABLET (FOR DETOX USE ONLY) PO SCH (10:00)
[2017-12-20 10:14] LABS: HEMATOCRIT 39.8 % (35.4-49); HEMOGLOBIN 13.2 GM/dL (11.7-16.9); MCH 29.5 pg (25.7-33.7); MCHC 33.3 g/dl (32.0-35.9); MEAN CELL VOLUME 88.8 fl (80-96); MEAN PLT VOLUME 9.6 fl (7.5-11.1); PLATELET COUNT 184 K/MM3 (134-434); RBC 4.48 M/mm3 (4.00-5.60); RDW 13.2 % (11.9-15.9); WHITE BLOOD COUNT 3.7 K/mm3 (4.0-10.0)
--- NOTE | 2017-12-20 10:21 | PN ---
[facility] CIWA - CIWA Score Nausea/Vomitin-Mild Nausea/No Vomiting Muscle Tremors: 4-Moderate,w/Arms Extend Anxiety: 4-Mod. Anxious/Guarded Agitation: 4-Moderately Restless Paroxysmal Sweats: 1-Minimal Palms Moist Orientation: 0-Oriented Tacttile Disturbances: 0-None Auditory Disturbances: 0-None Visual Disturbances: 0-None Headache: 0-None Present CIWA-Ar Total Score: 14 BHS COWS - Scale Resting Pulse: 0= [place] 80 or Below Sweatin= Chills/Flushing Restless Observation: 1= Difficult to Sit Still Pupil Size: 0= Normal to Room Light Bone or Joint Aches: 2= Severe Diffuse Aches Runny Nose/ Eye Tearin= Runny Nose/Eyes GI Upset > 30mins: 2= Nausea/Diarrhea Tremor Observation of Outstretched Hands: 2= Slight Tremor Visible Yawning Observation: 2= >3x During Session Anxiety or Irritability: 2=Irritable/Anxious Goose Flesh Skin: 0=Smooth Skin COWS Score: 14 [facility] Progress Note (SOAP) Subjective: sweat tremor restlessness irritable anxiety gi distress Objective: 12/20/17 10:24 Vital Signs Temperature 96.8 F L 12/20/17 07:42 Pulse Rate 78 12/20/17 07:42 Respiratory Rate 18 12/20/17 07:42 Blood Pressure 118/73 12/20/17 07:42 O2 Sat by Pulse Oximetry (%) Laboratory Last Values WBC 3.7 K/mm3 (4.0-10.0) L 12/20/17 06:00 RBC 4.48 M/mm3 (4.00-5.60) 12/20/17 06:00 Hgb 13.2 GM/dL (11.7-16.9) 12/20/17 06:00 Hct 39.8 % (35.4-49) 12/20/17 06:00 MCV 88.8 fl (80-96) 12/20/17 06:00 MCH 29.5 pg (25.7-33.7) 12/20/17 06:00 MCHC 33.3 g/dl (32.0-35.9) 12/20/17 06:00 RDW 13.2 % (11.9-15.9) 12/20/17 06:00 Plt Count 184 K/MM3 (134-434) 12/20/17 06:00 MPV 9.6 fl (7.5-11.1) 12/20/17 06:00 HIV 1&2 Antibody Screen Negative 12/19/17 11:40 HIV P24 Antigen Negative 12/19/17 11:40 lab noted Assessment: 12/20/17 10:24 withdrawal sx Plan: continue detox
[2017-12-20 10:35] LABS: CHLORIDE 106 mmol/L (98-107); POTASSIUM 4.9 mmol/L (3.5-5.1); SODIUM 142 mmol/L (136-145)
[2017-12-20] MEDS: PRENATAL VITAMINS W/ FOLIC ACID TABLET (FP) PO SCH (10:41)
[2017-12-20] MEDS: diazePAM 5 MG TABLET PO PRN ×2 (10:41→18:34)
[2017-12-20] MEDS: NICOTINE 14 MG/24 HOURS TOPICAL PATCH TD SCH (10:42)
[2017-12-20] MEDS: IBUPROFEN 400 MG TABLET (FP) PO PRN (10:44)
[2017-12-20 10:50] LABS: URINE APPEARANCE CLEAR; URINE BILIRUBIN NEGATIVE (<2.0 mg/dL); URINE COLOR LTYELLOW; URINE GLUCOSE (UA) NEGATIVE (NEGATIVE); URINE KETONE NEGATIVE (NEGATIVE); URINE LEUK ESTERASE NEGATIVE (NEGATIVE); URINE NITRITE NEGATIVE (NEGATIVE); URINE PROTEIN NEGATIVE (NEGATIVE); URINE UROBILINOGEN NEGATIVE mg/dL (0.2-1.0)
[2017-12-20 11:10] LABS: ALBUMIN 3.7 g/dl (3.4-5.0); ALK PHOS 82 U/L (45-117); ANION GAP 9 (8-16); BILIRUBIN,TOTAL 0.6 mg/dL (0.2-1.0); BLOOD UREA NITROGEN 12 mg/dL (7-18); CALCIUM 9.2 mg/dL (8.5-10.1); CO2 27 mmol/L (21-32); CREATININE 1.3 mg/dL (0.7-1.3); GLUCOSE,RANDOM 147 mg/dL (74-106); SGOT/AST 24 U/L (15-37); SGPT/ALT 27 U/L (12-78); TOT PROT 7.5 g/dl (6.4-8.2)
[2017-12-20] MEDS: THIAMINE HCL 100 MG TABLET (FP) PO SCH (22:35)
[2017-12-20] MEDS: MIRTAZAPINE 15 MG TABLET (FP) PO SCH (22:36)
[2017-12-21] MEDS: IBUPROFEN 400 MG TABLET (FP) PO PRN (06:12)
[2017-12-21] MEDS: diazePAM 5 MG TABLET PO PRN ×3 (06:12→18:31)
[2017-12-21] MEDS: NICOTINE 14 MG/24 HOURS TOPICAL PATCH TD SCH (10:06)
[2017-12-21] MEDS: METHADONE HCL 5 MG TABLET (FOR DETOX USE ONLY) PO SCH (10:06)
[2017-12-21] MEDS: diazePAM 5 MG TABLET PO SCH ×2 (10:06→22:25)
[2017-12-21] MEDS: PRENATAL VITAMINS W/ FOLIC ACID TABLET (FP) PO SCH (10:06)
--- NOTE | 2017-12-21 11:30 | PN ---
S CIWA - CIWA Score Nausea/Vomitin-No Nausea/No Vomiting Muscle Tremors: 2 Anxiety: 3 Agitation: 3 Paroxysmal Sweats: 2 Orientation: 0-Oriented Tacttile Disturbances: 2-Mild Itch/Numbness/Burn Auditory Disturbances: 0-None Visual Disturbances: 0-None Headache: 2-Mild CIWA-Ar Total Score: 14 S Progress Note (SOAP) Subjective: c/o of body aches,m headaches, weakness and decrease appetite, pin and needles on both feet . Denies vertigo, neck pain, or visual changes. Objective: 12/21/17 11:27 Vital Signs Temperature 97.7 F 12/21/17 10:16 Pulse Rate 71 12/21/17 10:16 Respiratory Rate 18 12/21/17 10:16 Blood Pressure 123/79 12/21/17 10:16 O2 Sat by Pulse Oximetry (%) Laboratory Last Values WBC 3.7 K/mm3 (4.0-10.0) L 12/20/17 06:00 RBC 4.48 M/mm3 (4.00-5.60) 12/20/17 06:00 Hgb 13.2 GM/dL (11.7-16.9) 12/20/17 06:00 Hct 39.8 % (35.4-49) 12/20/17 06:00 MCV 88.8 fl (80-96) 12/20/17 06:00 MCH 29.5 pg (25.7-33.7) 12/20/17 06:00 MCHC 33.3 g/dl (32.0-35.9) 12/20/17 06:00 RDW 13.2 % (11.9-15.9) 12/20/17 06:00 Plt Count 184 K/MM3 (134-434) 12/20/17 06:00 MPV 9.6 fl (7.5-11.1) 12/20/17 06:00 Sodium 142 mmol/L (136-145) 12/20/17 06:00 Potassium 4.9 mmol/L (3.5-5.1) 12/20/17 06:00 Chloride 106 mmol/L (98-107) 12/20/17 06:00 Carbon Dioxide 27 mmol/L (21-32) 12/20/17 06:00 Anion Gap 9 (8-16) 12/20/17 06:00 BUN 12 mg/dL (7-18) 12/20/17 06:00 Creatinine 1.3 mg/dL (0.7-1.3) 12/20/17 06:00 Creat Clearance w eGFR 58.43 (>60) 12/20/17 06:00 Random Glucose 147 mg/dL (74-106) H D 12/20/17 06:00 Calcium 9.2 mg/dL (8.5-10.1) 12/20/17 06:00 Total Bilirubin 0.6 mg/dL (0.2-1.0) 12/20/17 06:00 AST 24 U/L (15-37) 12/20/17 06:00 ALT 27 U/L (12-78) 12/20/17 06:00 Alkaline Phosphatase 82 U/L (45-117) 12/20/17 06:00 Total Protein 7.5 g/dl (6.4-8.2) 12/20/17 06:00 Albumin 3.7 g/dl (3.4-5.0) 12/20/17 06:00 Urine Color Ltyellow 12/20/17 08:30 Urine Appearance Clear 12/20/17 08:30 Urine pH 6.0 (5.0-8.0) 12/20/17 08:30 Ur Specific [place] 1.018 (1.001-1.035) 12/20/17 08:30 Urine Protein Negative (NEGATIVE) 12/20/17 08:30 Urine Glucose (UA) Negative (NEGATIVE) 12/20/17 08:30 Urine Ketones Negative (NEGATIVE) 12/20/17 08:30 Urine Blood Negative (NEGATIVE) 12/20/17 08:30 Urine Nitrite Negative (NEGATIVE) 12/20/17 08:30 Urine Bilirubin Negative (<2.0 mg/dL) 12/20/17 08:30 Urine Urobilinogen Negative mg/dL (0.2-1.0) 12/20/17 08:30 Ur Leukocyte Esterase Negative (NEGATIVE) 12/20/17 08:30 RPR Titer Nonreactive (NONREACTIVE) 12/20/17 06:00 HIV 1&2 Antibody Screen Negative 12/19/17 11:40 HIV P24 Antigen Negative 12/19/17 11:40 Patient Aox3 no distress no adventitious breath sounds skin intact, no erythema full ROM ambulating in unit independently without difficulty + headache Assessment: 12/21/17 11:29 withdrawal symptoms Plan: increase fluids continue detox ibuprofen PRN for headaches continue to monitor
--- NOTE | 2017-12-21 11:30 | PN ---
BHS COWS - Scale Resting Pulse: 0= [place] 80 or Below Sweatin= Chills/Flushing Restless Observation: 1= Difficult to Sit Still Pupil Size: 1= Pupils >than Normal Bone or Joint Aches: 1= Mild Discomfort Runny Nose/ Eye Tearin= Runny Nose/Eyes GI Upset > 30mins: 2= Nausea/Diarrhea Tremor Observation of Outstretched Hands: 1= Tremor [place], Not Seen Yawning Observation: 1= 1-2x During Session Anxiety or Irritability: 2=Irritable/Anxious Goose Flesh Skin: 3=Piloerection COWS Score: 15
[2017-12-21] MEDS: THIAMINE HCL 100 MG TABLET (FP) PO SCH (22:25)
[2017-12-21] MEDS: MIRTAZAPINE 15 MG TABLET (FP) PO SCH (22:25)
[2017-12-22] MEDS: diazePAM 5 MG TABLET PO SCH (10:15)
[2017-12-22] MEDS: PRENATAL VITAMINS W/ FOLIC ACID TABLET (FP) PO SCH (10:15)
[2017-12-22] MEDS: NICOTINE 14 MG/24 HOURS TOPICAL PATCH TD SCH (10:16)
[2017-12-22] MEDS: METHADONE HCL 5 MG TABLET (FOR DETOX USE ONLY) PO SCH (10:16)
[2017-12-22] MEDS: IBUPROFEN 400 MG TABLET (FP) PO PRN (10:17)
[2017-12-22 22:12] VITALS: BP 115/71; PULSE 74; TEMP 97.7
--- NOTE | 2017-12-22 22:18 | PN ---
BHS Progress Note (SOAP) Subjective: Shakes sleep disturbance sweats Objective: 12/22/17 A & O x 3 Vital Signs Temperature 97.7 F 12/22/17 22:12 Pulse Rate 74 12/22/17 22:12 Respiratory Rate 18 12/22/17 22:12 Blood Pressure 115/71 12/22/17 22:12 O2 Sat by Pulse Oximetry (%) Assessment: 12/22/17 withdrawal sx Plan: continue detox
--- NOTE | 2017-12-23 07:14 | DS ---
[facility] Detox Discharge Summary Admission Date: 12/19/17 Discharge Date: 12/22/17 - History Present History: Opioid Dependence, Sedative Dependence Pertinent Past History: HEP C NICOTINE DEP - Physical Exam Results Vital Signs: Vital Signs Temperature 97.7 F 12/22/17 22:12 Pulse Rate 74 12/22/17 22:12 Respiratory Rate 18 12/22/17 22:12 Blood Pressure 115/71 12/22/17 22:12 O2 Sat by Pulse Oximetry (%) Pertinent Admission Physical Exam Findings: WITHDRAWAL SX'S Laboratory Tests 12/19/17 12/20/17 12/20/17 11:40 06:00 06:00 WBC 3.7 L RBC 4.48 Hgb 13.2 Hct 39.8 MCV 88.8 MCH 29.5 MCHC 33.3 RDW 13.2 Plt Count 184 MPV 9.6 Sodium 142 Potassium 4.9 Chloride 106 Carbon Dioxide 27 Anion Gap 9 BUN 12 Creatinine 1.3 Creat Clearance w eGFR 58.43 Random Glucose 147 H D Calcium 9.2 Total Bilirubin 0.6 AST 24 ALT 27 Alkaline Phosphatase 82 Total Protein 7.5 Albumin 3.7 Urine Color Urine Appearance Urine pH Ur Specific [place] Urine Protein Urine Glucose (UA) Urine Ketones Urine Blood Urine Nitrite Urine Bilirubin Urine Urobilinogen Ur Leukocyte Esterase RPR Titer HIV 1&2 Antibody Screen Negative HIV P24 Antigen Negative 12/20/17 12/20/17 06:00 08:30 WBC RBC Hgb Hct MCV MCH MCHC RDW Plt Count MPV Sodium Potassium Chloride Carbon Dioxide Anion Gap BUN Creatinine Creat Clearance w eGFR Random Glucose Calcium Total Bilirubin AST ALT Alkaline Phosphatase Total Protein Albumin Urine Color Ltyellow Urine Appearance Clear Urine pH 6.0 Ur Specific [place] 1.018 Urine Protein Negative Urine Glucose (UA) Negative Urine Ketones Negative Urine Blood Negative Urine Nitrite Negative Urine Bilirubin Negative Urine Urobilinogen Negative Ur Leukocyte Esterase Negative RPR Titer Nonreactive HIV 1&2 Antibody Screen HIV P24 Antigen - Treatment Hospital Course: Discharged Condition Good Patient has Accepted a Rehab Referral to: DECLINED - Medication Discharge Medications: Ambulatory Orders Mirtazapine [Remeron -] 15 mg PO HS 04/25/17 Amitriptyline HCl [Elavil -] 25 mg PO HS 12/19/17 Quetiapine Fumarate [Seroquel -] 50 mg PO HS 12/19/17 - AMA Did Patient Leave Against Medical Advice: Yes
[2017-12-23] MEDS ORDERED: METHADONE HCL 10 MG TABLET (FOR DETOX USE ONLY) PO SCH (10:00)
[2017-12-23] MEDS ORDERED: diazePAM 5 MG TABLET PO SCH (10:00)
[2017-12-24] MEDS ORDERED: METHADONE HCL 5 MG TABLET (FOR DETOX USE ONLY) PO SCH (06:00)
== END 2017-12-22 20:45 | disposition left against medical advice (07) | DRG 770 ==
LOC: YASAS 10:20 → Y6N 12:59
PROVIDERS: ADMIT Surgery; ATTEND Surgery
PROC: HZ2ZZZZ Detoxification Services for Substance Abuse Treatment (ICD-10-PCS; principal; 2017-12-19)
DX: F11.23 Opioid dependence with withdrawal (principal); F13.230 Sedative, hypnotic or anxiolytic dependence with withdrawal, uncomplicated; F17.213 Nicotine dependence, cigarettes, with withdrawal; F19.24 Other psychoactive substance dependence with psychoactive substance-induced mood disorder; F19.282 Other psychoactive substance dependence with psychoactive substance-induced sleep disorder; F31.9 Bipolar disorder, unspecified; G47.00 Insomnia, unspecified; B18.2 Chronic viral hepatitis C; R55 Syncope and collapse; Z86.69 Personal history of other diseases of the nervous system and sense organs; F32.9 Major depressive disorder, single episode, unspecified
CPT/HCPCS: 36415; 80053; 81003; 85027; 86593; 87389; 93005; 93010

== ENCOUNTER 2018-02-28 12:14 | Inpatient (IN) | payer OTHER ==
[2018-02-28 12:31] VITALS: BMI 18.8
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
[2018-02-28] MEDS ORDERED: MAG HYDROX/AL HYDROX/SIMETH 30 ML UNIT-DOSE CUP PO PRN (14:38)
[2018-02-28] MEDS ORDERED: ACETAMINOPHEN 325 MG TABLET (FP) PO PRN (14:38)
[2018-02-28] MEDS ORDERED: IBUPROFEN 400 MG TABLET (FP) PO PRN (14:38)
[2018-02-28] MEDS ORDERED: MAGNESIUM HYDROX 2400MG/30ML ORAL SUSPENSION 30 ML CUP PO PRN (14:38)
[2018-02-28] MEDS ORDERED: MAGNESIUM CITRATE 300 ML BOTTLE PO PRN (14:38)
[2018-02-28] MEDS ORDERED: METHADONE HCL 10 MG TABLET (FOR DETOX USE ONLY) PO ONE ×2 (15:55→23:00)
[2018-02-28] MEDS ORDERED: MELATONIN 5 MG TABLETS PO PRN (22:00)
[2018-02-28] MEDS: THIAMINE HCL 100 MG TABLET (FP) PO SCH (22:16)
[2018-02-28] MEDS: hydrOXYzine PAMOATE 25 MG CAPSULE (FP) PO PRN (22:16)
--- NOTE | 2018-03-01 08:01 | EKG ---
Test Reason : Blood Pressure : / mmHG Vent. Rate : 066 BPM Atrial Rate : 066 BPM P-R Int : 106 ms QRS Dur : 068 ms QT Int : 382 ms P-R-T Axes : 067 064 060 degrees QTc Int : 400 ms POOR DATA QUALITY, INTERPRETATION MAY BE ADVERSELY AFFECTED SINUS RHYTHM WITH SHORT TX OTHERWISE NORMAL ECG WHEN COMPARED WITH ECG OF 19-DEC-2017 14:00, TX INTERVAL HAS DECREASED Confirmed by KARSTEN BAUTISTA, SALLY ([id number]) on 03/01/2018 8:01:39 AM Referred By: Confirmed By:SALLY SHELLEY MD
[2018-03-01] MEDS ORDERED: METHADONE HCL 10 MG TABLET (FOR DETOX USE ONLY) PO ONE (10:00)
[2018-03-01] MEDS: hydrOXYzine PAMOATE 25 MG CAPSULE (FP) PO PRN ×2 (10:08→22:08)
[2018-03-01] MEDS: PRENATAL VITAMINS W/ FOLIC ACID TABLET (FP) PO SCH (10:08)
[2018-03-01 10:17] LABS: HEMATOCRIT 37.6 % (35.4-49); HEMOGLOBIN 12.4 GM/dL (11.7-16.9); MEAN PLT VOLUME 9.4 fl (7.5-11.1); PLATELET COUNT 173 K/MM3 (134-434); RBC 4.28 M/mm3 (4.00-5.60); RDW 13.4 % (11.9-15.9); WHITE BLOOD COUNT 4.7 K/mm3 (4.0-10.0)
--- NOTE | 2018-03-01 10:20 | PN ---
BHS COWS - Scale Resting Pulse: 1= [place] 81-100 Sweatin= Chills/Flushing Restless Observation: 3= Extraneous Movement Pupil Size: 0= Normal to Room Light Bone or Joint Aches: 4=Acute Joint/Muscle Pain Runny Nose/ Eye Tearin= None GI Upset > 30mins: 0= None Tremor Observation of Outstretched Hands: 1= Tremor [place], Not Seen Yawning Observation: 1= 1-2x During Session Anxiety or Irritability: 2=Irritable/Anxious Goose Flesh Skin: 0=Smooth Skin COWS Score: 13 BHS Progress Note (SOAP) Subjective: PT STATES "I FEEL TERRIBLE". C/O ACHES AND PAINS,IRRITABILITY,RESTLESSNESS, INTERMITTENT SLEEP. Objective: 03/01/18 10:20 Vital Signs 03/01/18 03/01/18 03/01/18 03:30 06:06 09:44 Temperature 97.9 F 98.0 F Pulse Rate 82 73 Respiratory 18 18 18 Rate Blood Pressure 114/71 122/78 LABS PENDING Assessment: 03/01/18 10:20 WITHDRAWAL SX Plan: CONTINUE DETOX MOTRIN PRN FLEXERIL PRN. INCREASE PO FLUIDS.
[2018-03-01 11:00] LABS: ALBUMIN 3.2 g/dl (3.4-5.0); ALK PHOS 92 U/L (45-117); ANION GAP 9 MMOL/L (8-16); BILIRUBIN,TOTAL 0.2 mg/dL (0.2-1); BLOOD UREA NITROGEN 16 mg/dL (7-18); CALCIUM 9.1 mg/dL (8.5-10.1); CHLORIDE 106 mmol/L (98-107); CO2 27 mmol/L (21-32); CREATININE 1.1 mg/dL (0.55-1.3); GLUCOSE,RANDOM 90 mg/dL (74-106); POTASSIUM 4.2 mmol/L (3.5-5.1); SGOT/AST 25 U/L (15-37); SGPT/ALT 28 U/L (13-61); SODIUM 142 mmol/L (136-145); TOT PROT 6.5 g/dl (6.4-8.2)
[2018-03-01] MEDS: THIAMINE HCL 100 MG TABLET (FP) PO SCH (22:07)
--- NOTE | 2018-03-02 09:28 | PN ---
BHS COWS - Scale Resting Pulse: 1= [place] 81-100 Sweatin=Flushed/Facial Moisture Restless Observation: 1= Difficult to Sit Still Pupil Size: 0= Normal to Room Light Bone or Joint Aches: 1= Mild Discomfort Runny Nose/ Eye Tearin= Nasal Congestion GI Upset > 30mins: 0= None Tremor Observation of Outstretched Hands: 2= Slight Tremor Visible Yawning Observation: 1= 1-2x During Session Anxiety or Irritability: 1=Feels Anxious/Irritable Goose Flesh Skin: 0=Smooth Skin COWS Score: 10 BHS Progress Note (SOAP) Subjective: sweats sleep disturbance Objective: 03/02/18 09:26 A & O x 3 on bed, in no acute distress Vital Signs Temperature 98.9 F 03/02/18 09:01 Pulse Rate 85 03/02/18 09:01 Respiratory Rate 18 03/02/18 09:01 Blood Pressure 120/68 03/02/18 09:01 O2 Sat by Pulse Oximetry (%) Assessment: 03/02/18 09:28 Withdrawal sx Plan: Continue detox
[2018-03-02] MEDS ORDERED: METHADONE HCL 5 MG TABLET (FOR DETOX USE ONLY) PO ONE (10:00)
[2018-03-02] MEDS: hydrOXYzine PAMOATE 25 MG CAPSULE (FP) PO PRN ×2 (10:02→22:03)
[2018-03-02] MEDS: PRENATAL VITAMINS W/ FOLIC ACID TABLET (FP) PO SCH (10:02)
[2018-03-02] MEDS: THIAMINE HCL 100 MG TABLET (FP) PO SCH (22:02)
[2018-03-02 23:29] LABS: URINE APPEARANCE CLEAR; URINE BILIRUBIN NEGATIVE (<2.0 mg/dL); URINE COLOR STRAW; URINE GLUCOSE (UA) NEGATIVE (NEGATIVE); URINE KETONE NEGATIVE (NEGATIVE); URINE LEUK ESTERASE NEGATIVE (NEGATIVE); URINE NITRITE NEGATIVE (NEGATIVE); URINE PROTEIN NEGATIVE (NEGATIVE); URINE UROBILINOGEN NEGATIVE mg/dL (0.2-1.0)
[2018-03-03] MEDS ORDERED: METHADONE HCL 10 MG TABLET (FOR DETOX USE ONLY) PO ONE (10:00)
[2018-03-03] MEDS: PRENATAL VITAMINS W/ FOLIC ACID TABLET (FP) PO SCH (10:05)
[2018-03-03] MEDS: hydrOXYzine PAMOATE 25 MG CAPSULE (FP) PO PRN (10:05)
--- NOTE | 2018-03-03 11:46 | PN ---
BHS Progress Note (SOAP) Subjective: Chills, sweating, interrupted sleep Objective: 03/03/18 11:45 Last Vital Signs Temp Pulse Resp BP Pulse Ox 97.8 F 77 18 110/66 03/03/18 09:17 03/03/18 09:17 03/03/18 09:17 03/03/18 09:17 Laboratory Tests 03/01/18 03/01/18 03/01/18 07:00 07:00 07:00 WBC 4.7 RBC 4.28 Hgb 12.4 Hct 37.6 MCV 88.0 MCH 29.0 MCHC 33.0 RDW 13.4 Plt Count 173 MPV 9.4 Sodium 142 Potassium 4.2 Chloride 106 Carbon Dioxide 27 Anion Gap 9 BUN 16 Creatinine 1.1 Creat Clearance w eGFR > 60 Random Glucose 90 Calcium 9.1 Total Bilirubin 0.2 AST 25 ALT 28 Alkaline Phosphatase 92 Total Protein 6.5 Albumin 3.2 L Urine Color Urine Appearance Urine pH Ur Specific [place] Urine Protein Urine Glucose (UA) Urine Ketones Urine Blood Urine Nitrite Urine Bilirubin Urine Urobilinogen Ur Leukocyte Esterase RPR Titer Nonreactive 03/02/18 21:00 WBC RBC Hgb Hct MCV MCH MCHC RDW Plt Count MPV Sodium Potassium Chloride Carbon Dioxide Anion Gap BUN Creatinine Creat Clearance w eGFR Random Glucose Calcium Total Bilirubin AST ALT Alkaline Phosphatase Total Protein Albumin Urine Color Straw Urine Appearance Clear Urine pH 7.0 Ur Specific [place] 1.010 Urine Protein Negative Urine Glucose (UA) Negative Urine Ketones Negative Urine Blood Negative Urine Nitrite Negative Urine Bilirubin Negative Urine Urobilinogen Negative Ur Leukocyte Esterase Negative RPR Titer Labs reviewed Assessment: 03/03/18 11:46 Withdrawal symptoms Plan: Continue detox Encouraged PO water hydration
[2018-03-03 13:20] VITALS: BP 121/71; PULSE 74; TEMP 98.1
--- NOTE | 2018-03-03 15:26 | DS ---
[facility] Detox Discharge Summary Admission Date: 02/28/18 Discharge Date: 03/03/18 - History Present History: Opioid Dependence Pertinent Past History: Hepatitis C Seizure disorder - Physical Exam Results Vital Signs: Vital Signs Temperature 98.1 F 03/03/18 13:20 Pulse Rate 74 03/03/18 13:20 Respiratory Rate 16 03/03/18 13:20 Blood Pressure 121/71 03/03/18 13:20 O2 Sat by Pulse Oximetry (%) Pertinent Admission Physical Exam Findings: Withdrawal symptoms Laboratory Tests 03/01/18 03/01/18 03/01/18 07:00 07:00 07:00 WBC 4.7 RBC 4.28 Hgb 12.4 Hct 37.6 MCV 88.0 MCH 29.0 MCHC 33.0 RDW 13.4 Plt Count 173 MPV 9.4 Sodium 142 Potassium 4.2 Chloride 106 Carbon Dioxide 27 Anion Gap 9 BUN 16 Creatinine 1.1 Creat Clearance w eGFR > 60 Random Glucose 90 Calcium 9.1 Total Bilirubin 0.2 AST 25 ALT 28 Alkaline Phosphatase 92 Total Protein 6.5 Albumin 3.2 L Urine Color Urine Appearance Urine pH Ur Specific [place] Urine Protein Urine Glucose (UA) Urine Ketones Urine Blood Urine Nitrite Urine Bilirubin Urine Urobilinogen Ur Leukocyte Esterase RPR Titer Nonreactive 03/02/18 21:00 WBC RBC Hgb Hct MCV MCH MCHC RDW Plt Count MPV Sodium Potassium Chloride Carbon Dioxide Anion Gap BUN Creatinine Creat Clearance w eGFR Random Glucose Calcium Total Bilirubin AST ALT Alkaline Phosphatase Total Protein Albumin Urine Color Straw Urine Appearance Clear Urine pH 7.0 Ur Specific [place] 1.010 Urine Protein Negative Urine Glucose (UA) Negative Urine Ketones Negative Urine Blood Negative Urine Nitrite Negative Urine Bilirubin Negative Urine Urobilinogen Negative Ur Leukocyte Esterase Negative RPR Titer Labs reviewed - Medication Discharge Medications: Ambulatory Orders NK [No Known Home Medication] 02/28/18 - Diagnosis (1) Nicotine dependence Current Visit: Yes Status: Chronic Qualifiers: Nicotine product type: cigarettes Substance use status: in withdrawal Qualified Code(s): F17.213 - Nicotine dependence, cigarettes, with withdrawal (2) Opioid dependence with withdrawal Current Visit: Yes Status: Acute (3) Hepatitis C Current Visit: Yes Status: Chronic Qualifiers: Viral hepatitis chronicity: chronic Hepatic coma status: without hepatic coma Qualified Code(s): B18.2 - Chronic viral hepatitis C (4) History of seizure Current Visit: Yes Status: Chronic - AMA Did Patient Leave Against Medical Advice: Yes (Proceed to ER stat if withdrawal sxs; F/U with your PCP in 1-3 days)
[2018-03-04] MEDS ORDERED: METHADONE HCL 5 MG TABLET (FOR DETOX USE ONLY) PO ONE (06:00)
== END 2018-03-03 15:20 | disposition home or self-care (01) | DRG 773 ==
LOC: YASAS 12:14 → Y3N 15:33
PROC: HZ2ZZZZ Detoxification Services for Substance Abuse Treatment (ICD-10-PCS; principal; 2018-02-28)
DX: F11.23 Opioid dependence with withdrawal (principal); F13.90 Sedative, hypnotic, or anxiolytic use, unspecified, uncomplicated; F12.90 Cannabis use, unspecified, uncomplicated; F17.213 Nicotine dependence, cigarettes, with withdrawal; F31.9 Bipolar disorder, unspecified; F32.9 Major depressive disorder, single episode, unspecified; B18.2 Chronic viral hepatitis C; Z86.69 Personal history of other diseases of the nervous system and sense organs
CPT/HCPCS: 36415; 80053; 81003; 85027; 86593; 93005; 93010

== ENCOUNTER 2018-04-24 08:41 | Inpatient (IN) | payer OTHER ==
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
[2018-04-24] MEDS ORDERED: MAGNESIUM HYDROX 2400MG/30ML ORAL SUSPENSION 30 ML CUP PO PRN (09:40)
[2018-04-24] MEDS ORDERED: P-EPHED 60MG/TRIPROLIDI 2.5MG TABLET PO PRN (09:40)
[2018-04-24] MEDS ORDERED: MAG HYDROX/AL HYDROX/SIMETH 30 ML UNIT-DOSE CUP PO PRN (09:40)
[2018-04-24] MEDS ORDERED: guaiFENesin/D-METHORPHAN HB 10 ML UNIT-DOSE CUPS PO PRN (09:40)
[2018-04-24] MEDS ORDERED: LOPERAMIDE HCL 2 MG CAPSULE PO PRN (09:40)
[2018-04-24] MEDS ORDERED: MENTHOL/PHENOL 1 EACH UD MM PRN (09:40)
[2018-04-24] MEDS ORDERED: ACETAMINOPHEN 325 MG TABLET (FP) PO PRN (09:40)
[2018-04-24] MEDS ORDERED: MAGNESIUM CITRATE 300 ML BOTTLE PO PRN (09:40)
[2018-04-24 10:10] VITALS: BMI 19.8
[2018-04-24] MEDS ORDERED: diazePAM 5 MG TABLET PO ONE (10:20)
[2018-04-24] MEDS ORDERED: METHADONE HCL 10 MG TABLET (FOR DETOX USE ONLY) PO ONE ×2 (10:30→23:00)
[2018-04-24] MEDS: cloNIDine HCL 0.1 MG TABLET PO SCH ×2 (11:06→22:07)
[2018-04-24] MEDS: PRENATAL VITAMINS W/ FOLIC ACID TABLET (FP) PO SCH (11:09)
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
[2018-04-24] MEDS: diazePAM 5 MG TABLET PO SCH ×2 (14:10→22:07)
[2018-04-24 17:37] LABS: URINE APPEARANCE CLEAR; URINE BILIRUBIN NEGATIVE (<2.0 mg/dL); URINE COLOR YELLOW; URINE GLUCOSE (UA) NEGATIVE (NEGATIVE); URINE KETONE NEGATIVE (NEGATIVE); URINE LEUK ESTERASE NEGATIVE (NEGATIVE); URINE NITRITE NEGATIVE (NEGATIVE); URINE PROTEIN NEGATIVE (NEGATIVE); URINE UROBILINOGEN NEGATIVE mg/dL (0.2-1.0)
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
[2018-04-24] MEDS ORDERED: MELATONIN 5 MG TABLETS PO PRN (22:00)
[2018-04-24] MEDS: THIAMINE HCL 100 MG TABLET (FP) PO SCH (22:07)
[2018-04-24] MEDS: CYCLOBENZAPRINE HCL 10 MG TABLET (FP) PO PRN (22:07)
[2018-04-24] MEDS: QUEtiapine FUMARATE 50 MG TABLET PO SCH (22:07)
[2018-04-25] MEDS: diazePAM 5 MG TABLET PO SCH ×3 (05:07→22:12)
[2018-04-25] MEDS: diazePAM 5 MG TABLET PO PRN ×3 (07:52→19:30)
--- NOTE | 2018-04-25 09:45 | PN ---
S CIWA - CIWA Score Nausea/Vomitin-No Nausea/No Vomiting Muscle Tremors: 2 Anxiety: 3 Agitation: 2 Paroxysmal Sweats: 2 Orientation: 0-Oriented Tacttile Disturbances: 0-None Auditory Disturbances: 0-None Visual Disturbances: 0-None Headache: 0-None Present CIWA-Ar Total Score: 9 [facility] COWS - Scale Resting Pulse: 0= [place] 80 or Below Sweatin= Chills/Flushing Restless Observation: 1= Difficult to Sit Still Pupil Size: 1= Pupils >than Normal Bone or Joint Aches: 2= Severe Diffuse Aches Runny Nose/ Eye Tearin= None GI Upset > 30mins: 0= None Tremor Observation of Outstretched Hands: 2= Slight Tremor Visible Yawning Observation: 1= 1-2x During Session Anxiety or Irritability: 2=Irritable/Anxious Goose Flesh Skin: 0=Smooth Skin COWS Score: 10 [facility] Progress Note (SOAP) Subjective: PATIENT C/O SHAKES, BODY ACHES, SWEATING AND ANXIETY. Objective: 04/25/18 09:44 Vital Signs Temperature 96.8 F L 04/25/18 09:07 Pulse Rate 81 04/25/18 09:07 Respiratory Rate 18 04/25/18 09:07 Blood Pressure 98/61 04/25/18 09:07 O2 Sat by Pulse Oximetry (%) Laboratory Tests 04/24/18 15:41 Urine Color Yellow Urine Appearance Clear Urine pH 6.0 Ur Specific [place] 1.016 Urine Protein Negative Urine Glucose (UA) Negative Urine Ketones Negative Urine Blood Negative Urine Nitrite Negative Urine Bilirubin Negative Urine Urobilinogen Negative Ur Leukocyte Esterase Negative PE: SKIN WARM, +FACIAL MOISTURE ALERT AND ORIENTED X 3 CAR S1S2 RESP CTA BL EXT +TREMORS AMB AD ANALIA Assessment: 04/25/18 09:45 WITHDRAWAL SX Plan: CONTINUE DETOX ENCOURAGE ORAL FLUIDS CONTINUE TO MONITOR
[2018-04-25] MEDS ORDERED: METHADONE HCL 10 MG TABLET (FOR DETOX USE ONLY) PO SCH (10:00)
[2018-04-25 10:15] LABS: HEMATOCRIT 40.2 % (35.4-49); MCH 28.5 pg (25.7-33.7); MCHC 32.4 g/dl (32.0-35.9); MEAN CELL VOLUME 87.9 fl (80-96); MEAN PLT VOLUME 9.5 fl (7.5-11.1); PLATELET COUNT 151 K/MM3 (134-434); RBC 4.57 M/mm3 (4.00-5.60); RDW 13.4 % (11.9-15.9); WHITE BLOOD COUNT 3.3 K/mm3 (4.0-10.0)
[2018-04-25] MEDS: PRENATAL VITAMINS W/ FOLIC ACID TABLET (FP) PO SCH (10:19)
[2018-04-25] MEDS: cloNIDine HCL 0.1 MG TABLET PO SCH ×2 (10:20→22:11)
[2018-04-25 10:53] LABS: ALBUMIN 3.7 g/dl (3.4-5.0); ALK PHOS 78 U/L (45-117); ANION GAP 8 MMOL/L (8-16); BILIRUBIN,TOTAL 0.7 mg/dL (0.2-1); BLOOD UREA NITROGEN 11 mg/dL (7-18); CALCIUM 8.8 mg/dL (8.5-10.1); CHLORIDE 101 mmol/L (98-107); CO2 28 mmol/L (21-32); CREATININE 1.2 mg/dL (0.55-1.3); GLUCOSE,RANDOM 135 mg/dL (74-106); POTASSIUM 4.3 mmol/L (3.5-5.1); SGOT/AST 33 U/L (15-37); SGPT/ALT 31 U/L (13-61); SODIUM 137 mmol/L (136-145); TOT PROT 7.1 g/dl (6.4-8.2)
[2018-04-25] MEDS: THIAMINE HCL 100 MG TABLET (FP) PO SCH (22:11)
[2018-04-25] MEDS: QUEtiapine FUMARATE 50 MG TABLET PO SCH (22:11)
[2018-04-26] MEDS: diazePAM 5 MG TABLET PO PRN ×3 (02:28→16:29)
[2018-04-26] MEDS: CYCLOBENZAPRINE HCL 10 MG TABLET (FP) PO PRN ×3 (02:29→22:10)
[2018-04-26] MEDS: cloNIDine HCL 0.1 MG TABLET PO SCH ×2 (09:35→22:08)
[2018-04-26] MEDS: METHADONE HCL 5 MG TABLET (FOR DETOX USE ONLY) PO SCH (10:05)
[2018-04-26] MEDS: PRENATAL VITAMINS W/ FOLIC ACID TABLET (FP) PO SCH (10:05)
[2018-04-26] MEDS: diazePAM 5 MG TABLET PO SCH ×2 (10:06→22:08)
[2018-04-26] MEDS ORDERED: POTASSIUM CHLORIDE TABS 20 MEQ TABLET.ER (FP) PO SCH (10:15)
--- NOTE | 2018-04-26 10:19 | PN ---
S CIWA - CIWA Score Nausea/Vomitin Muscle Tremors: None Anxiety: 3 Agitation: 3 Paroxysmal Sweats: 2 Orientation: 0-Oriented Tacttile Disturbances: 0-None Auditory Disturbances: 0-None Visual Disturbances: 0-None Headache: 0-None Present CIWA-Ar Total Score: 10 S COWS - Scale Resting Pulse: 0= [place] 80 or Below Sweatin=Flushed/Facial Moisture Restless Observation: 1= Difficult to Sit Still Pupil Size: 0= Normal to Room Light Bone or Joint Aches: 2= Severe Diffuse Aches Runny Nose/ Eye Tearin= None GI Upset > 30mins: 2= Nausea/Diarrhea Tremor Observation of Outstretched Hands: 0= None Yawning Observation: 0= None Anxiety or Irritability: 2=Irritable/Anxious Goose Flesh Skin: 0=Smooth Skin COWS Score: 9 [facility] Progress Note (SOAP) Subjective: PATIENT ANXIOUS/RESTLESS. C/O NAUSEA AND DIARRHEA, BODY ACHES. Objective: 04/26/18 10:17 Vital Signs Temperature 98.4 F 04/26/18 09:31 Pulse Rate 80 04/26/18 09:31 Respiratory Rate 18 04/26/18 09:31 Blood Pressure 94/62 04/26/18 09:31 O2 Sat by Pulse Oximetry (%) Laboratory Tests 04/24/18 04/25/18 04/25/18 15:41 05:50 05:50 WBC 3.3 L RBC 4.57 Hgb 13.0 Hct 40.2 MCV 87.9 MCH 28.5 MCHC 32.4 RDW 13.4 Plt Count 151 MPV 9.5 Sodium 137 Potassium 4.3 Chloride 101 Carbon Dioxide 28 Anion Gap 8 BUN 11 Creatinine 1.2 Creat Clearance w eGFR > 60 Random Glucose 135 H Calcium 8.8 Total Bilirubin 0.7 AST 33 ALT 31 Alkaline Phosphatase 78 Total Protein 7.1 Albumin 3.7 Urine Color Yellow Urine Appearance Clear Urine pH 6.0 Ur Specific [place] 1.016 Urine Protein Negative Urine Glucose (UA) Negative Urine Ketones Negative Urine Blood Negative Urine Nitrite Negative Urine Bilirubin Negative Urine Urobilinogen Negative Ur Leukocyte Esterase Negative RPR Titer 04/25/18 05:50 WBC RBC Hgb Hct MCV MCH MCHC RDW Plt Count MPV Sodium Potassium Chloride Carbon Dioxide Anion Gap BUN Creatinine Creat Clearance w eGFR Random Glucose Calcium Total Bilirubin AST ALT Alkaline Phosphatase Total Protein Albumin Urine Color Urine Appearance Urine pH Ur Specific [place] Urine Protein Urine Glucose (UA) Urine Ketones Urine Blood Urine Nitrite Urine Bilirubin Urine Urobilinogen Ur Leukocyte Esterase RPR Titer Nonreactive PE: ALERT AND ORIENTED X 3 SKIN + FLUSHING, MOIST EXT FULL ROM, NO TREMORS AMB AD ANALIA Assessment: 04/26/18 10:18 WITHDRAWAL SX HYPOKALEMIA Plan: CONTINUE DETOX REGIMEN ENCOURAGE ORAL FLUIDS KDUR 20MEQ PO BID REPEAT POTASSIUM LEVEL IN AM CONTINUE TO MONITOR CLINICALLY
[2018-04-26] MEDS: IBUPROFEN 400 MG TABLET (FP) PO PRN (12:19)
[2018-04-26] MEDS: QUEtiapine FUMARATE 50 MG TABLET PO SCH (22:08)
[2018-04-26] MEDS: THIAMINE HCL 100 MG TABLET (FP) PO SCH (22:08)
[2018-04-27] MEDS: IBUPROFEN 400 MG TABLET (FP) PO PRN (06:26)
[2018-04-27] MEDS: diazePAM 5 MG TABLET PO PRN (06:26)
[2018-04-27] MEDS: CYCLOBENZAPRINE HCL 10 MG TABLET (FP) PO PRN ×2 (06:26→22:14)
[2018-04-27] MEDS: diazePAM 5 MG TABLET PO SCH ×2 (10:07→22:14)
[2018-04-27] MEDS: PRENATAL VITAMINS W/ FOLIC ACID TABLET (FP) PO SCH (10:07)
[2018-04-27] MEDS: METHADONE HCL 5 MG TABLET (FOR DETOX USE ONLY) PO SCH (10:07)
[2018-04-27] MEDS: cloNIDine HCL 0.1 MG TABLET PO SCH ×2 (10:08→22:15)
--- NOTE | 2018-04-27 10:27 | PN ---
[facility] Progress Note Note: PATIENT C/O LOW BACK PAIN, OCCASIONAL SWEATING. Laboratory Tests 04/24/18 04/25/18 04/25/18 15:41 05:50 05:50 WBC 3.3 L RBC 4.57 Hgb 13.0 Hct 40.2 MCV 87.9 MCH 28.5 MCHC 32.4 RDW 13.4 Plt Count 151 MPV 9.5 Sodium 137 Potassium 4.3 Chloride 101 Carbon Dioxide 28 Anion Gap 8 BUN 11 Creatinine 1.2 Creat Clearance w eGFR > 60 Random Glucose 135 H Calcium 8.8 Total Bilirubin 0.7 AST 33 ALT 31 Alkaline Phosphatase 78 Total Protein 7.1 Albumin 3.7 Urine Color Yellow Urine Appearance Clear Urine pH 6.0 Ur Specific [place] 1.016 Urine Protein Negative Urine Glucose (UA) Negative Urine Ketones Negative Urine Blood Negative Urine Nitrite Negative Urine Bilirubin Negative Urine Urobilinogen Negative Ur Leukocyte Esterase Negative RPR Titer 04/25/18 05:50 WBC RBC Hgb Hct MCV MCH MCHC RDW Plt Count MPV Sodium Potassium Chloride Carbon Dioxide Anion Gap BUN Creatinine Creat Clearance w eGFR Random Glucose Calcium Total Bilirubin AST ALT Alkaline Phosphatase Total Protein Albumin Urine Color Urine Appearance Urine pH Ur Specific [place] Urine Protein Urine Glucose (UA) Urine Ketones Urine Blood Urine Nitrite Urine Bilirubin Urine Urobilinogen Ur Leukocyte Esterase RPR Titer Nonreactive Vital Signs Temperature 97.3 F L 04/27/18 09:44 Pulse Rate 87 04/27/18 09:44 Respiratory Rate 16 04/27/18 09:44 Blood Pressure 103/62 04/27/18 09:44 O2 Sat by Pulse Oximetry (%) PE: SKIN WARM AND DRY ALERT AND ORIENTED X 3 EXT FULL ROM AMB AD ANALIA A/P: WITHDRAWAL SX COTINUE DETOX FLEXERIL PRN CONTINUE TO MONITOR
[2018-04-27] MEDS: hydrOXYzine PAMOATE 25 MG CAPSULE (FP) PO PRN ×2 (12:48→17:46)
[2018-04-27] MEDS: QUEtiapine FUMARATE 50 MG TABLET PO SCH (22:14)
[2018-04-27] MEDS: THIAMINE HCL 100 MG TABLET (FP) PO SCH (22:15)
[2018-04-28] MEDS: CYCLOBENZAPRINE HCL 10 MG TABLET (FP) PO PRN ×2 (07:10→22:15)
[2018-04-28] MEDS: hydrOXYzine PAMOATE 25 MG CAPSULE (FP) PO PRN (07:10)
[2018-04-28] MEDS ORDERED: METHADONE HCL 10 MG TABLET (FOR DETOX USE ONLY) PO SCH (10:00)
[2018-04-28] MEDS ORDERED: diazePAM 5 MG TABLET PO SCH (10:00)
[2018-04-28] MEDS: PRENATAL VITAMINS W/ FOLIC ACID TABLET (FP) PO SCH (10:04)
[2018-04-28] MEDS: cloNIDine HCL 0.1 MG TABLET PO SCH ×2 (10:06→22:15)
--- NOTE | 2018-04-28 12:03 | PN ---
[facility] Progress Note (SOAP) Subjective: Sweating, restless, interrupted sleep. Patient scheduled for discharge tomorrow. Objective: 04/28/18 11:44 Last Vital Signs Temp Pulse Resp BP Pulse Ox 97.1 F L 90 18 102/61 04/28/18 09:24 04/28/18 09:24 04/28/18 09:24 04/28/18 09:24 Laboratory Tests 04/24/18 04/25/18 04/25/18 15:41 05:50 05:50 WBC 3.3 L RBC 4.57 Hgb 13.0 Hct 40.2 MCV 87.9 MCH 28.5 MCHC 32.4 RDW 13.4 Plt Count 151 MPV 9.5 Sodium 137 Potassium 4.3 Chloride 101 Carbon Dioxide 28 Anion Gap 8 BUN 11 Creatinine 1.2 Creat Clearance w eGFR > 60 Random Glucose 135 H Calcium 8.8 Total Bilirubin 0.7 AST 33 ALT 31 Alkaline Phosphatase 78 Total Protein 7.1 Albumin 3.7 Urine Color Yellow Urine Appearance Clear Urine pH 6.0 Ur Specific [place] 1.016 Urine Protein Negative Urine Glucose (UA) Negative Urine Ketones Negative Urine Blood Negative Urine Nitrite Negative Urine Bilirubin Negative Urine Urobilinogen Negative Ur Leukocyte Esterase Negative RPR Titer 04/25/18 05:50 WBC RBC Hgb Hct MCV MCH MCHC RDW Plt Count MPV Sodium Potassium Chloride Carbon Dioxide Anion Gap BUN Creatinine Creat Clearance w eGFR Random Glucose Calcium Total Bilirubin AST ALT Alkaline Phosphatase Total Protein Albumin Urine Color Urine Appearance Urine pH Ur Specific [place] Urine Protein Urine Glucose (UA) Urine Ketones Urine Blood Urine Nitrite Urine Bilirubin Urine Urobilinogen Ur Leukocyte Esterase RPR Titer Nonreactive Labs reviewed: serum glucose 135 Assessment: 04/28/18 11:45 Withdrawal symptoms Note with hyperglycemia Plan: Continue detox Patient scheduled for discharge tomorrow Hyperglycemia: could be r/t withdrawal, patient denies DM; encouraged PO water intake, follow up with PCP within 1-2 weeks post discharge for further evaluation.
[2018-04-28] MEDS: QUEtiapine FUMARATE 50 MG TABLET PO SCH (22:15)
[2018-04-28] MEDS: THIAMINE HCL 100 MG TABLET (FP) PO SCH (22:15)
[2018-04-29] MEDS: hydrOXYzine PAMOATE 25 MG CAPSULE (FP) PO PRN (05:08)
[2018-04-29 05:50] VITALS: BP 105/64; PULSE 79; TEMP 98
[2018-04-29] MEDS ORDERED: METHADONE HCL 5 MG TABLET (FOR DETOX USE ONLY) PO SCH (06:00)
--- NOTE | 2018-04-29 11:01 | DS ---
[facility] Detox Discharge Summary Admission Date: 04/24/18 Discharge Date: 04/29/18 - History Present History: Opioid Dependence, Sedative Dependence Additional Comments: 52 years old male admitted on 04/24/18 for opiate and benzo withdrawal sx completed detox regimen [facility] - Physical Exam Results Vital Signs: Vital Signs Temperature 98 F 04/29/18 05:49 Pulse Rate 79 04/29/18 05:49 Respiratory Rate 18 04/29/18 05:49 Blood Pressure 105/64 04/29/18 05:49 O2 Sat by Pulse Oximetry (%) Pertinent Admission Physical Exam Findings: opiate and benzo withdrawal sx Vital Signs Temperature 98 F 04/29/18 05:49 Pulse Rate 79 04/29/18 05:49 Respiratory Rate 18 04/29/18 05:49 Blood Pressure 105/64 04/29/18 05:49 O2 Sat by Pulse Oximetry (%) Laboratory Last Values WBC 3.3 K/mm3 (4.0-10.0) L 04/25/18 05:50 RBC 4.57 M/mm3 (4.00-5.60) 04/25/18 05:50 Hgb 13.0 GM/dL (11.7-16.9) 04/25/18 05:50 Hct 40.2 % (35.4-49) 04/25/18 05:50 MCV 87.9 fl (80-96) 04/25/18 05:50 MCH 28.5 pg (25.7-33.7) 04/25/18 05:50 MCHC 32.4 g/dl (32.0-35.9) 04/25/18 05:50 RDW 13.4 % (11.9-15.9) 04/25/18 05:50 Plt Count 151 K/MM3 (134-434) 04/25/18 05:50 MPV 9.5 fl (7.5-11.1) 04/25/18 05:50 Sodium 137 mmol/L (136-145) 04/25/18 05:50 Potassium 4.3 mmol/L (3.5-5.1) 04/25/18 05:50 Chloride 101 mmol/L (98-107) 04/25/18 05:50 Carbon Dioxide 28 mmol/L (21-32) 04/25/18 05:50 Anion Gap 8 MMOL/L (8-16) 04/25/18 05:50 BUN 11 mg/dL (7-18) 04/25/18 05:50 Creatinine 1.2 mg/dL (0.55-1.3) 04/25/18 05:50 Creat Clearance w eGFR > 60 (>60) 04/25/18 05:50 Random Glucose 135 mg/dL (74-106) H 04/25/18 05:50 Calcium 8.8 mg/dL (8.5-10.1) 04/25/18 05:50 Total Bilirubin 0.7 mg/dL (0.2-1) 04/25/18 05:50 AST 33 U/L (15-37) 04/25/18 05:50 ALT 31 U/L (13-61) 04/25/18 05:50 Alkaline Phosphatase 78 U/L (45-117) 04/25/18 05:50 Total Protein 7.1 g/dl (6.4-8.2) 04/25/18 05:50 Albumin 3.7 g/dl (3.4-5.0) 04/25/18 05:50 Urine Color Yellow 04/24/18 15:41 Urine Appearance Clear 04/24/18 15:41 Urine pH 6.0 (5.0-8.0) 04/24/18 15:41 Ur Specific [place] 1.016 (1.010-1.035) 04/24/18 15:41 Urine Protein Negative (NEGATIVE) 04/24/18 15:41 Urine Glucose (UA) Negative (NEGATIVE) 04/24/18 15:41 Urine Ketones Negative (NEGATIVE) 04/24/18 15:41 Urine Blood Negative (NEGATIVE) 04/24/18 15:41 Urine Nitrite Negative (NEGATIVE) 04/24/18 15:41 Urine Bilirubin Negative (<2.0 mg/dL) 04/24/18 15:41 Urine Urobilinogen Negative mg/dL (0.2-1.0) 04/24/18 15:41 Ur Leukocyte Esterase Negative (NEGATIVE) 04/24/18 15:41 RPR Titer Nonreactive (NONREACTIVE) 04/25/18 05:50 lab noted - Treatment Hospital Course: Detox Protocol Followed, Detoxed Safely, Responded well, Discharged Condition Good, Rehab Referral Accepted Patient has Accepted a Re[facility] Referral to: [facility] - Medication Discharge Medications: Ambulatory Orders NK [No Known Home Medication] 02/28/18 - Diagnosis (1) Sedative, hypnotic or anxiolytic dependence with withdrawal, uncomplicated Status: Acute (2) Substance induced mood disorder Status: Acute (3) Hepatitis C Status: Chronic Qualifiers: Viral hepatitis chronicity: chronic Hepatic coma status: without hepatic coma Qualified Code(s): B18.2 - Chronic viral hepatitis C (4) Nicotine dependence Status: Acute Qualifiers: Nicotine product type: cigarettes Substance use status: in withdrawal Qualified Code(s): F17.213 - Nicotine dependence, cigarettes, with withdrawal - AMA Did Patient Leave Against Medical Advice: No
== END 2018-04-29 08:43 | disposition home or self-care (01) | DRG 773 ==
LOC: YASAS 08:41 → Y3N 10:07
PROC: HZ2ZZZZ Detoxification Services for Substance Abuse Treatment (ICD-10-PCS; principal; 2018-04-24)
DX: F11.23 Opioid dependence with withdrawal (principal); F13.230 Sedative, hypnotic or anxiolytic dependence with withdrawal, uncomplicated; F17.210 Nicotine dependence, cigarettes, uncomplicated; F31.9 Bipolar disorder, unspecified; F19.24 Other psychoactive substance dependence with psychoactive substance-induced mood disorder; G47.00 Insomnia, unspecified; B18.2 Chronic viral hepatitis C; R73.9 Hyperglycemia, unspecified; E87.6 Hypokalemia; R63.4 Abnormal weight loss; Z68.1 Body mass index [BMI] 19.9 or less, adult
CPT/HCPCS: 36415; 80053; 81003; 85027; 86593; J0735

== ENCOUNTER 2018-07-19 09:40 | Inpatient (IN) | payer OTHER ==
[2018-07-19 10:08] VITALS: BMI 19.8
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
[2018-07-19] MEDS ORDERED: MAG HYDROX/AL HYDROX/SIMETH 30 ML UNIT-DOSE CUP PO PRN (10:38)
[2018-07-19] MEDS ORDERED: P-EPHED 60MG/TRIPROLIDI 2.5MG TABLET PO PRN (10:38)
[2018-07-19] MEDS ORDERED: guaiFENesin/D-METHORPHAN HB 10 ML UNIT-DOSE CUPS PO PRN (10:38)
[2018-07-19] MEDS ORDERED: MENTHOL/PHENOL 1 EACH UD MM PRN (10:38)
[2018-07-19] MEDS ORDERED: LOPERAMIDE HCL 2 MG CAPSULE PO PRN (10:38)
[2018-07-19] MEDS ORDERED: ACETAMINOPHEN 325 MG TABLET (FP) PO PRN (10:38)
[2018-07-19] MEDS ORDERED: MAGNESIUM CITRATE 300 ML BOTTLE PO PRN (10:38)
[2018-07-19] MEDS ORDERED: IBUPROFEN 400 MG TABLET (FP) PO PRN (10:38)
[2018-07-19] MEDS ORDERED: MAGNESIUM HYDROX 2400MG/30ML ORAL SUSPENSION 30 ML CUP PO PRN (10:38)
[2018-07-19] MEDS ORDERED: CYCLOBENZAPRINE HCL 10 MG TABLET (FP) PO PRN (10:46)
[2018-07-19] MEDS ORDERED: diazePAM 5 MG TABLET PO ONE (11:25)
[2018-07-19] MEDS ORDERED: METHADONE HCL 10 MG TABLET (FOR DETOX USE ONLY) PO ONE ×2 (11:30→23:00)
[2018-07-19] MEDS: diazePAM 5 MG TABLET PO SCH ×2 (13:10→22:08)
[2018-07-19] MEDS: diazePAM 5 MG TABLET PO PRN (17:19)
[2018-07-19] MEDS ORDERED: MELATONIN 5 MG TABLETS PO PRN (22:00)
[2018-07-19] MEDS: THIAMINE HCL 100 MG TABLET (FP) PO SCH (22:08)
[2018-07-19] MEDS: cloNIDine HCL 0.1 MG TABLET PO SCH (22:08)
[2018-07-20] MEDS: diazePAM 5 MG TABLET PO SCH ×3 (05:50→22:04)
[2018-07-20] MEDS ORDERED: METHADONE HCL 10 MG TABLET (FOR DETOX USE ONLY) PO SCH (10:00)
[2018-07-20] MEDS: PRENATAL VITAMINS W/ FOLIC ACID TABLET (FP) PO SCH (10:01)
[2018-07-20] MEDS: cloNIDine HCL 0.1 MG TABLET PO SCH ×2 (10:02→22:05)
[2018-07-20] MEDS: diazePAM 5 MG TABLET PO PRN ×2 (10:03→16:44)
[2018-07-20 11:36] LABS: ALBUMIN 3.2 g/dl (3.4-5.0); ALK PHOS 83 U/L (45-117); ANION GAP 4 MMOL/L (8-16); BILIRUBIN,TOTAL 0.3 mg/dL (0.2-1); BLOOD UREA NITROGEN 12 mg/dL (7-18); CALCIUM 8.7 mg/dL (8.5-10.1); CHLORIDE 102 mmol/L (98-107); CO2 32 mmol/L (21-32); GLUCOSE,RANDOM 92 mg/dL (74-106); POTASSIUM 4.2 mmol/L (3.5-5.1); SGOT/AST 24 U/L (15-37); SGPT/ALT 23 U/L (13-61); SODIUM 138 mmol/L (136-145); TOT PROT 6.7 g/dl (6.4-8.2)
[2018-07-20 11:55] LABS: HEMATOCRIT 37.7 % (35.4-49); HEMOGLOBIN 12.9 GM/dL (11.7-16.9); MCH 30.1 pg (25.7-33.7); MCHC 34.1 g/dl (32.0-35.9); MEAN CELL VOLUME 88.3 fl (80-96); MEAN PLT VOLUME 8.9 fl (7.5-11.1); PLATELET COUNT 179 K/MM3 (134-434); RBC 4.27 M/mm3 (4.00-5.60); RDW 13.4 % (11.9-15.9); WHITE BLOOD COUNT 4.2 K/mm3 (4.0-10.0)
--- NOTE | 2018-07-20 16:26 | PN ---
[facility] CIWA - CIWA Score Nausea/Vomitin-No Nausea/No Vomiting Muscle Tremors: 3 Anxiety: 1-Mildly Anxious Agitation: 2 Paroxysmal Sweats: 3 Orientation: 0-Oriented Tacttile Disturbances: 0-None Auditory Disturbances: 0-None Visual Disturbances: 0-None Headache: 0-None Present CIWA-Ar Total Score: 9 [facility] COWS - Scale Resting Pulse: 0= RI 80 or Below Sweatin=Flushed/Facial Moisture Restless Observation: 1= Difficult to Sit Still Pupil Size: 0= Normal to Room Light Bone or Joint Aches: 1= Mild Discomfort Runny Nose/ Eye Tearin= Nasal Congestion GI Upset > 30mins: 0= None Tremor Observation of Outstretched Hands: 2= Slight Tremor Visible Yawning Observation: 1= 1-2x During Session Anxiety or Irritability: 1=Feels Anxious/Irritable Goose Flesh Skin: 0=Smooth Skin COWS Score: 9 [facility] Progress Note (SOAP) Subjective: sweats shakes Objective: 07/20/18 16:29 A & O x 3 no acute distress noted Vital Signs Temperature 97.0 F L 07/20/18 14:28 Pulse Rate 72 07/20/18 14:28 Respiratory Rate 16 07/20/18 14:28 Blood Pressure 103/56 L 07/20/18 14:28 O2 Sat by Pulse Oximetry (%) Laboratory Last Values WBC 4.2 K/mm3 (4.0-10.0) 07/20/18 07:40 RBC 4.27 M/mm3 (4.00-5.60) 07/20/18 07:40 Hgb 12.9 GM/dL (11.7-16.9) 07/20/18 07:40 Hct 37.7 % (35.4-49) 07/20/18 07:40 MCV 88.3 fl (80-96) 07/20/18 07:40 MCH 30.1 pg (25.7-33.7) 07/20/18 07:40 MCHC 34.1 g/dl (32.0-35.9) 07/20/18 07:40 RDW 13.4 % (11.9-15.9) 07/20/18 07:40 Plt Count 179 K/MM3 (134-434) 07/20/18 07:40 MPV 8.9 fl (7.5-11.1) 07/20/18 07:40 Sodium 138 mmol/L (136-145) 07/20/18 07:40 Potassium 4.2 mmol/L (3.5-5.1) 07/20/18 07:40 Chloride 102 mmol/L (98-107) 07/20/18 07:40 Carbon Dioxide 32 mmol/L (21-32) 07/20/18 07:40 Anion Gap 4 MMOL/L (8-16) L 07/20/18 07:40 BUN 12 mg/dL (7-18) 07/20/18 07:40 Creatinine 1.0 mg/dL (0.55-1.3) 07/20/18 07:40 Creat Clearance w eGFR > 60 (>60) 07/20/18 07:40 Random Glucose 92 mg/dL (74-106) 07/20/18 07:40 Calcium 8.7 mg/dL (8.5-10.1) 07/20/18 07:40 Total Bilirubin 0.3 mg/dL (0.2-1) 07/20/18 07:40 AST 24 U/L (15-37) 07/20/18 07:40 ALT 23 U/L (13-61) 07/20/18 07:40 Alkaline Phosphatase 83 U/L (45-117) 07/20/18 07:40 Total Protein 6.7 g/dl (6.4-8.2) 07/20/18 07:40 Albumin 3.2 g/dl (3.4-5.0) L 07/20/18 07:40 RPR Titer Nonreactive (NONREACTIVE) 07/20/18 07:40 labs noted Assessment: 07/20/18 16:30 withdrawal sx Plan: continue detox
[2018-07-20] MEDS: hydrOXYzine PAMOATE 25 MG CAPSULE (FP) PO PRN ×2 (16:44→22:06)
[2018-07-20] MEDS: THIAMINE HCL 100 MG TABLET (FP) PO SCH (22:04)
[2018-07-21] MEDS: diazePAM 5 MG TABLET PO PRN ×2 (01:05→05:58)
[2018-07-21 09:26] VITALS: BP 101/54; PULSE 71; TEMP 98.1
[2018-07-21] MEDS ORDERED: METHADONE HCL 5 MG TABLET (FOR DETOX USE ONLY) PO SCH (10:00)
[2018-07-21] MEDS ORDERED: diazePAM 5 MG TABLET PO SCH (10:00)
[2018-07-21] MEDS: PRENATAL VITAMINS W/ FOLIC ACID TABLET (FP) PO SCH (10:04)
[2018-07-21] MEDS: cloNIDine HCL 0.1 MG TABLET PO SCH (10:05)
--- NOTE | 2018-07-21 13:17 | DS ---
[facility] Detox Discharge Summary Admission Date: 07/19/18 Discharge Date: 07/21/18 - History Present History: Opioid Dependence, Sedative Dependence Additional Comments: Patient demanded to leave AMA despite encouragement to complete detox. Patient is A/A/Ox3, in nad, vss, ambulatory. Patient instructed to call 911 DAVID if feeling sick or any withdrawal symptoms and to follow up with his PCP within 3 days. Patient verbalized understanding. Pertinent Past History: Hepatitis C (treated) Bipolar disorder Nicotine dependence Opioid dependence Sedative dependence - Physical Exam Results Vital Signs: Vital Signs Temperature 98.1 F 07/21/18 09:26 Pulse Rate 71 07/21/18 09:26 Respiratory Rate 16 07/21/18 09:26 Blood Pressure 101/54 L 07/21/18 09:26 O2 Sat by Pulse Oximetry (%) Pertinent Admission Physical Exam Findings: Withdrawal symptoms Laboratory Tests 07/20/18 07/20/18 07/20/18 07:40 07:40 07:40 WBC 4.2 RBC 4.27 Hgb 12.9 Hct 37.7 MCV 88.3 MCH 30.1 MCHC 34.1 RDW 13.4 Plt Count 179 MPV 8.9 Sodium 138 Potassium 4.2 Chloride 102 Carbon Dioxide 32 Anion Gap 4 L BUN 12 Creatinine 1.0 Creat Clearance w eGFR > 60 Random Glucose 92 Calcium 8.7 Total Bilirubin 0.3 AST 24 ALT 23 Alkaline Phosphatase 83 Total Protein 6.7 Albumin 3.2 L RPR Titer Nonreactive Labs reviewed - Medication Discharge Medications: Ambulatory Orders Gabapentin [Neurontin -] 300 mg PO Q8H 07/19/18 Mirtazapine [Remeron -] 15 mg PO HS 07/19/18 - Diagnosis (1) Depression Status: Chronic (2) Nicotine dependence Status: Chronic Qualifiers: Nicotine product type: cigarettes Substance use status: in withdrawal Qualified Code(s): F17.213 - Nicotine dependence, cigarettes, with withdrawal (3) Opioid dependence with withdrawal Status: Acute (4) Sedative, hypnotic or anxiolytic dependence with withdrawal, uncomplicated Status: Acute (5) Bipolar disorder Status: Chronic Qualifiers: Active/Remission status: remission status unspecified Qualified Code(s): F31.9 - Bipolar disorder, unspecified (6) Hepatitis C Status: Chronic Qualifiers: Viral hepatitis chronicity: chronic Hepatic coma status: without hepatic coma Qualified Code(s): B18.2 - Chronic viral hepatitis C - AMA Did Patient Leave Against Medical Advice: Yes (Instructed to call 911 DAVID if feeling sick or withdrawal symptoms)
[2018-07-23] MEDS ORDERED: diazePAM 5 MG TABLET PO SCH (10:00)
[2018-07-23] MEDS ORDERED: METHADONE HCL 10 MG TABLET (FOR DETOX USE ONLY) PO SCH (10:00)
[2018-07-24] MEDS ORDERED: METHADONE HCL 5 MG TABLET (FOR DETOX USE ONLY) PO SCH (06:00)
== END 2018-07-21 11:15 | disposition left against medical advice (07) | DRG 770 ==
LOC: YASAS 09:40 → Y6N 10:53
PROVIDERS: ADMIT Surgery; ATTEND Surgery
PROC: HZ2ZZZZ Detoxification Services for Substance Abuse Treatment (ICD-10-PCS; principal; 2018-07-19)
DX: F11.23 Opioid dependence with withdrawal (principal); F13.230 Sedative, hypnotic or anxiolytic dependence with withdrawal, uncomplicated; F17.213 Nicotine dependence, cigarettes, with withdrawal; F31.9 Bipolar disorder, unspecified; B18.2 Chronic viral hepatitis C; R63.4 Abnormal weight loss; Z68.1 Body mass index [BMI] 19.9 or less, adult
CPT/HCPCS: 36415; 80053; 85027; 86593; J0735

== ENCOUNTER 2018-08-22 15:51 | Inpatient (IN) | payer OTHER ==
[2018-08-22 16:59] VITALS: BMI 19.8
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
[2018-08-22] MEDS ORDERED: ACETAMINOPHEN 325 MG TABLET (FP) PO PRN ×2 (17:49)
[2018-08-22] MEDS ORDERED: BISMUTH SUBSALICYLATE 524 MG/30 ML UD PO PRN (17:49)
[2018-08-22] MEDS ORDERED: MENTHOL/PHENOL 1 EACH UD MM PRN (17:49)
[2018-08-22] MEDS ORDERED: MAGNESIUM CITRATE 300 ML BOTTLE PO PRN (17:49)
[2018-08-22] MEDS ORDERED: IBUPROFEN 400 MG TABLET (FP) PO PRN (17:49)
[2018-08-22] MEDS ORDERED: METHOCARBAMOL 500 MG TABLET PO PRN (17:49)
[2018-08-22] MEDS ORDERED: NICOTINE POLACRILEX 2 MG GUM BUC PRN (17:49)
[2018-08-22] MEDS ORDERED: MAG HYDROX/AL HYDROX/SIMETH 30 ML UNIT-DOSE CUP PO PRN (17:49)
[2018-08-22] MEDS ORDERED: cloNIDine HCL 0.1 MG TABLET PO PRN (17:49)
[2018-08-22] MEDS ORDERED: MAGNESIUM HYDROX 2400MG/30ML ORAL SUSPENSION 30 ML CUP PO PRN (17:49)
[2018-08-22] MEDS ORDERED: MELATONIN 5 MG TABLETS PO PRN (17:49)
[2018-08-22] MEDS: diazePAM 5 MG TABLET PO PRN (18:45)
[2018-08-22] MEDS: THIAMINE HCL 100 MG TABLET (FP) PO SCH (22:26)
[2018-08-22] MEDS: diazePAM 5 MG TABLET PO SCH (22:26)
[2018-08-22] MEDS ORDERED: METHADONE HCL 10 MG TABLET (FOR DETOX USE ONLY) PO ONE (23:00)
[2018-08-23] MEDS: diazePAM 5 MG TABLET PO SCH ×3 (05:24→22:24)
[2018-08-23] MEDS: diazePAM 5 MG TABLET PO PRN ×2 (08:56→18:27)
[2018-08-23 09:50] LABS: HEMATOCRIT 40.1 % (35.4-49); MCH 30.8 pg (25.7-33.7); MEAN CELL VOLUME 88.2 fl (80-96); MEAN PLT VOLUME 9.1 fl (7.5-11.1); PLATELET COUNT 166 K/MM3 (134-434); RBC 4.55 M/mm3 (4.00-5.60); RDW 13.2 % (11.9-15.9); WHITE BLOOD COUNT 5.5 K/mm3 (4.0-10.0)
[2018-08-23 09:57] LABS: ALBUMIN 3.5 g/dl (3.4-5.0); ALK PHOS 97 U/L (45-117); ANION GAP 6 MMOL/L (8-16); BILIRUBIN,TOTAL 0.3 mg/dL (0.2-1); BLOOD UREA NITROGEN 13 mg/dL (7-18); CALCIUM 8.7 mg/dL (8.5-10.1); CHLORIDE 103 mmol/L (98-107); CO2 30 mmol/L (21-32); CREATININE 1.3 mg/dL (0.55-1.3); GLUCOSE,RANDOM 100 mg/dL (74-106); POTASSIUM 4.3 mmol/L (3.5-5.1); SGOT/AST 18 U/L (15-37); SGPT/ALT 20 U/L (13-61); SODIUM 139 mmol/L (136-145)
[2018-08-23] MEDS ORDERED: METHADONE HCL 5 MG TABLET (FOR DETOX USE ONLY) PO ONE (10:00)
[2018-08-23] MEDS: PRENATAL VITAMINS W/ FOLIC ACID TABLET (FP) PO SCH (10:15)
[2018-08-23] MEDS: NICOTINE 14 MG/24 HOURS TOPICAL PATCH TD SCH (10:19)
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
--- NOTE | 2018-08-23 16:30 | PN ---
S CIWA - CIWA Score Nausea/Vomitin-No Nausea/No Vomiting Muscle Tremors: None Anxiety: 3 Agitation: 1-Slight > Activity Paroxysmal Sweats: 2 Orientation: 0-Oriented Tacttile Disturbances: 2-Mild Itch/Numbness/Burn Auditory Disturbances: 2-Mild Harshness/Frighten Visual Disturbances: 3-Moderate Sensitivity Headache: 0-None Present CIWA-Ar Total Score: 13 BHS COWS - Scale Resting Pulse: 2= [place] 101-120 Sweatin= Chills/Flushing Restless Observation: 1= Difficult to Sit Still Pupil Size: 0= Normal to Room Light Bone or Joint Aches: 0= None Runny Nose/ Eye Tearin= None GI Upset > 30mins: 2= Nausea/Diarrhea Tremor Observation of Outstretched Hands: 0= None Yawning Observation: 1= 1-2x During Session Anxiety or Irritability: 2=Irritable/Anxious Goose Flesh Skin: 3=Piloerection COWS Score: 12 BHS Progress Note (SOAP) Subjective: Restless, Anxious, Diarrhea, Hot / Cold Sensations. Objective: PATIENT A & O X 3, OBSERVED AMBULATING ON UNIT. IN NO ACUTE DISTRESS. 08/23/18 16:29 Vital Signs Temperature 96.7 F L 08/23/18 13:40 Pulse Rate 90 08/23/18 13:40 Respiratory Rate 18 08/23/18 13:40 Blood Pressure 92/64 08/23/18 13:40 O2 Sat by Pulse Oximetry (%) Laboratory Tests 08/23/18 08/23/18 08/23/18 07:40 07:40 07:40 WBC 5.5 RBC 4.55 Hgb 14.0 Hct 40.1 MCV 88.2 MCH 30.8 MCHC 35.0 RDW 13.2 Plt Count 166 MPV 9.1 Sodium 139 Potassium 4.3 Chloride 103 Carbon Dioxide 30 Anion Gap 6 L BUN 13 Creatinine 1.3 Creat Clearance w eGFR 58.20 Random Glucose 100 Calcium 8.7 Total Bilirubin 0.3 AST 18 ALT 20 Alkaline Phosphatase 97 Total Protein 7.0 Albumin 3.5 RPR Titer Nonreactive LABS NOTED. Assessment: 08/23/18 16:29 WITHDRAWAL SYMPTOMS. Plan: CONTINUE DETOX. INCREASE DAILY PO FLUID INTAKE.
[2018-08-23] MEDS ORDERED: QUEtiapine FUMARATE 50 MG TABLET PO SCH (22:00)
[2018-08-23] MEDS: THIAMINE HCL 100 MG TABLET (FP) PO SCH (22:24)
[2018-08-24] MEDS: diazePAM 5 MG TABLET PO PRN (05:21)
[2018-08-24 09:11] VITALS: BP 120/72; PULSE 91; TEMP 96
[2018-08-24] MEDS ORDERED: diazePAM 5 MG TABLET PO SCH (10:00)
[2018-08-24] MEDS ORDERED: METHADONE HCL 10 MG TABLET (FOR DETOX USE ONLY) PO ONE (10:00)
[2018-08-24] MEDS: PRENATAL VITAMINS W/ FOLIC ACID TABLET (FP) PO SCH (10:14)
[2018-08-24] MEDS: NICOTINE 14 MG/24 HOURS TOPICAL PATCH TD SCH (10:14)
--- NOTE | 2018-08-24 14:18 | PN ---
[facility] CIWA - CIWA Score Nausea/Vomitin-No Nausea/No Vomiting Muscle Tremors: None Anxiety: 3 Agitation: 2 Paroxysmal Sweats: 3 Orientation: 0-Oriented Tacttile Disturbances: 2-Mild Itch/Numbness/Burn Auditory Disturbances: 0-None Visual Disturbances: 2-Mild Sensitivity Headache: 0-None Present CIWA-Ar Total Score: 12 S COWS - Scale Resting Pulse: 1= [place] 81-100 Sweatin=Flushed/Facial Moisture Restless Observation: 0= Sits Still Pupil Size: 0= Normal to Room Light Bone or Joint Aches: 0= None Runny Nose/ Eye Tearin= Nasal Congestion GI Upset > 30mins: 0= None Tremor Observation of Outstretched Hands: 0= None Yawning Observation: 1= 1-2x During Session Anxiety or Irritability: 2=Irritable/Anxious Goose Flesh Skin: 0=Smooth Skin COWS Score: 7 S Progress Note (SOAP) Subjective: Restless, Anxious, Sweating, Hot / Cold Sensations. Objective: PATIENT A & O X 3, OBSERVED AMBULATING ON UNIT. IN NO ACUTE DISTRESS. 08/24/18 14:19 Vital Signs Temperature 96.0 F L 08/24/18 09:11 Pulse Rate 91 H 08/24/18 09:11 Respiratory Rate 18 08/24/18 09:11 Blood Pressure 120/72 08/24/18 09:11 O2 Sat by Pulse Oximetry (%) Laboratory Tests 08/23/18 08/23/18 08/23/18 07:40 07:40 07:40 WBC 5.5 RBC 4.55 Hgb 14.0 Hct 40.1 MCV 88.2 MCH 30.8 MCHC 35.0 RDW 13.2 Plt Count 166 MPV 9.1 Sodium 139 Potassium 4.3 Chloride 103 Carbon Dioxide 30 Anion Gap 6 L BUN 13 Creatinine 1.3 Creat Clearance w eGFR 58.20 Random Glucose 100 Calcium 8.7 Total Bilirubin 0.3 AST 18 ALT 20 Alkaline Phosphatase 97 Total Protein 7.0 Albumin 3.5 RPR Titer Nonreactive LABS NOTED. Assessment: 08/24/18 14:19 WITHDRAWAL SYMPTOMS. DEHYDRATION. 08/24/18 14:20 Plan: CONTINUE DETOX. INCREASE DAILY PO FLUID INTAKE.
--- NOTE | 2018-08-24 14:23 | DS ---
[facility] Detox Discharge Summary Admission Date: 08/22/18 Discharge Date: 08/24/18 - History Present History: Opioid Dependence, Sedative Dependence Additional Comments: PATIENT DOES NOT WISH TO REMAIN TO COMPLETE DETOX REGIMEN. RISKS OF LEAVING DETOX UNIT AGAINST MEDICAL ADVICE AND PRIOR TO COMPLETION OF DETOX REGIMEN EXPLAINED TO PATIENT. PATIENT ADVISED TO GO IMMEDIATELY TO NEAREST ER SHOULD ANY INTOLERABLE DETOX SYMPTOMS DEVELOP AT ANY TIME. PATIENT VERBALIZED UNDERSTANDING OF ALL INFORMATION / RECOMMENDATIONS PRESENTED TO HIM PRIOR TO DEPARTURE FROM DETOX UNIT. PATIENT LEFT DETOX UNIT IN STABLE MEDICAL CONDITION. Pertinent Past History: History of Hep C (Treated), History Of Depression, History Of Bipolar Disorder, History Of Weight Loss, Nicotine Dependence, I.V.D.U. (Intravenous Drug User). - Physical Exam Results Vital Signs: Vital Signs Temperature 96.0 F L 08/24/18 09:11 Pulse Rate 91 H 08/24/18 09:11 Respiratory Rate 18 08/24/18 09:11 Blood Pressure 120/72 08/24/18 09:11 O2 Sat by Pulse Oximetry (%) Pertinent Admission Physical Exam Findings: WITHDRAWAL SYMPTOMS. Laboratory Tests 08/23/18 08/23/18 08/23/18 07:40 07:40 07:40 WBC 5.5 RBC 4.55 Hgb 14.0 Hct 40.1 MCV 88.2 MCH 30.8 MCHC 35.0 RDW 13.2 Plt Count 166 MPV 9.1 Sodium 139 Potassium 4.3 Chloride 103 Carbon Dioxide 30 Anion Gap 6 L BUN 13 Creatinine 1.3 Creat Clearance w eGFR 58.20 Random Glucose 100 Calcium 8.7 Total Bilirubin 0.3 AST 18 ALT 20 Alkaline Phosphatase 97 Total Protein 7.0 Albumin 3.5 RPR Titer Nonreactive LABS NOTED. - Treatment Hospital Course: Detox Protocol Followed, Detoxed Safely - Medication Discharge Medications: Ambulatory Orders Gabapentin [Neurontin -] 300 mg PO Q8H 07/19/18 Mirtazapine [Remeron -] 15 mg PO HS 07/19/18 - Diagnosis (1) IVDU (intravenous drug user) Current Visit: Yes Status: Acute (2) Insomnia Current Visit: Yes Status: Acute Qualifiers: Insomnia type: unspecified Qualified Code(s): G47.00 - Insomnia, unspecified (3) Opioid dependence with withdrawal Current Visit: Yes Status: Acute (4) Sedative, hypnotic or anxiolytic dependence with withdrawal, uncomplicated Current Visit: Yes Status: Acute (5) Weight loss Current Visit: Yes Status: Acute (6) Hepatitis C Current Visit: Yes Status: Chronic Qualifiers: Viral hepatitis chronicity: chronic Hepatic coma status: without hepatic coma Qualified Code(s): B18.2 - Chronic viral hepatitis C (7) History of bipolar disorder Current Visit: Yes Status: Chronic (8) Insomnia Current Visit: Yes Status: Chronic Qualifiers: Insomnia type: unspecified Qualified Code(s): G47.00 - Insomnia, unspecified (9) Nicotine dependence Current Visit: Yes Status: Chronic Qualifiers: Nicotine product type: cigarettes Substance use status: in withdrawal Qualified Code(s): F17.213 - Nicotine dependence, cigarettes, with withdrawal (10) Non-compliance Current Visit: Yes Status: Chronic (11) Substance induced mood disorder Current Visit: Yes Status: Chronic - AMA Did Patient Leave Against Medical Advice: Yes (PATIENT DID NOT WISH TO REMAIN TO COMPLETE DETOX REGIMEN.)
[2018-08-25] MEDS ORDERED: METHADONE HCL 5 MG TABLET (FOR DETOX USE ONLY) PO ONE (06:00)
[2018-08-25] MEDS ORDERED: diazePAM 5 MG TABLET PO SCH (06:00)
== END 2018-08-24 12:40 | disposition left against medical advice (07) | DRG 770 ==
LOC: YASAS 15:51 → Y3N 18:18
PROVIDERS: ADMIT Surgery; ATTEND Surgery
PROC: HZ2ZZZZ Detoxification Services for Substance Abuse Treatment (ICD-10-PCS; principal; 2018-08-22)
DX: F11.23 Opioid dependence with withdrawal (principal); F13.230 Sedative, hypnotic or anxiolytic dependence with withdrawal, uncomplicated; F17.213 Nicotine dependence, cigarettes, with withdrawal; F19.24 Other psychoactive substance dependence with psychoactive substance-induced mood disorder; F43.10 Post-traumatic stress disorder, unspecified; G47.00 Insomnia, unspecified; E86.0 Dehydration; R63.4 Abnormal weight loss; Z68.1 Body mass index [BMI] 19.9 or less, adult; Z86.59 Personal history of other mental and behavioral disorders; Z86.19 Personal history of other infectious and parasitic diseases; Z91.19 Patient's noncompliance with other medical treatment and regimen
CPT/HCPCS: 36415; 80053; 85027; 86593

== ENCOUNTER 2018-10-25 16:53 | Inpatient (IN) | payer OTHER ==
[2018-10-25 20:20] VITALS: BMI 20.8
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
[2018-10-25] MEDS ORDERED: ACETAMINOPHEN 325 MG TABLET (FP) PO PRN ×2 (20:53)
[2018-10-25] MEDS ORDERED: P-EPHED 60MG/TRIPROLIDI 2.5MG TABLET PO PRN (20:53)
[2018-10-25] MEDS ORDERED: DICYCLOMINE HCL 10 MG CAPSULE PO PRN (20:53)
[2018-10-25] MEDS ORDERED: guaiFENesin 200 MG/10 ML 10 ML UNIT-DOSE CUPS PO PRN (20:53)
[2018-10-25] MEDS ORDERED: BISMUTH SUBSALICYLATE 524 MG/30 ML UD PO PRN (20:53)
[2018-10-25] MEDS ORDERED: IBUPROFEN 400 MG TABLET (FP) PO PRN ×2 (20:53)
[2018-10-25] MEDS ORDERED: METHOCARBAMOL 500 MG TABLET PO PRN (20:53)
[2018-10-25] MEDS ORDERED: MELATONIN 5 MG TABLETS PO PRN (20:53)
[2018-10-25] MEDS ORDERED: hydrOXYzine PAMOATE 25 MG CAPSULE (FP) PO PRN (20:53)
[2018-10-25] MEDS ORDERED: MAGNESIUM CITRATE 300 ML BOTTLE PO PRN (20:53)
[2018-10-25] MEDS ORDERED: MAGNESIUM HYDROX 2400MG/30ML ORAL SUSPENSION 30 ML CUP PO PRN (20:53)
[2018-10-25] MEDS ORDERED: NALOXONE HCL 0.4 MG/ML VIAL IVPUSH PRN (20:53)
[2018-10-25] MEDS ORDERED: ONDANSETRON *ODT* 4 MG TABLET SL PRN (20:53)
[2018-10-25] MEDS ORDERED: cloNIDine HCL 0.1 MG TABLET PO PRN (20:53)
[2018-10-25] MEDS ORDERED: MAG HYDROX/AL HYDROX/SIMETH 30 ML UNIT-DOSE CUP PO PRN (20:53)
[2018-10-25] MEDS ORDERED: MENTHOL/PHENOL 1 EACH UD MM PRN (20:53)
[2018-10-25] MEDS ORDERED: NICOTINE POLACRILEX 2 MG GUM BUC PRN (20:53)
[2018-10-25] MEDS: THIAMINE HCL 100 MG TABLET (FP) PO SCH (22:40)
[2018-10-25] MEDS: diazePAM 5 MG TABLET PO SCH (22:40)
[2018-10-25] MEDS ORDERED: METHADONE HCL 10 MG TABLET (FOR DETOX USE ONLY) PO ONE (23:00)
[2018-10-26] MEDS: diazePAM 5 MG TABLET PO SCH ×3 (05:12→22:23)
[2018-10-26] MEDS ORDERED: METHADONE HCL 10 MG TABLET (FOR DETOX USE ONLY) PO ONE (10:00)
[2018-10-26 10:09] LABS: ALBUMIN 3.3 g/dl (3.4-5.0); BILIRUBIN,TOTAL 0.2 mg/dL (0.2-1); CALCIUM 8.6 mg/dL (8.5-10.1); CREATININE 1.2 mg/dL (0.55-1.3); POTASSIUM 3.9 mmol/L (3.5-5.1); TOT PROT 6.6 g/dl (6.4-8.2)
[2018-10-26 10:16] LABS: HEMATOCRIT 39.8 % (35.4-49); HEMOGLOBIN 13.4 GM/dL (11.7-16.9); MCH 28.8 pg (25.7-33.7); MCHC 33.6 g/dl (32.0-35.9); MEAN CELL VOLUME 85.7 fl (80-96); MEAN PLT VOLUME 8.5 fl (7.5-11.1); PLATELET COUNT 197 K/MM3 (134-434); RBC 4.64 M/mm3 (4.00-5.60); RDW 13.1 % (11.9-15.9); WHITE BLOOD COUNT 4.1 K/mm3 (4.0-10.0)
[2018-10-26] MEDS: NICOTINE 14 MG/24 HOURS TOPICAL PATCH TD SCH (10:22)
[2018-10-26] MEDS: PRENATAL VITAMINS W/ FOLIC ACID TABLET (FP) PO SCH (10:22)
[2018-10-26] MEDS: diazePAM 5 MG TABLET PO PRN ×2 (10:22→17:30)
--- NOTE | 2018-10-26 12:09 | PN ---
[facility] CIWA - CIWA Score Nausea/Vomitin-No Nausea/No Vomiting Muscle Tremors: 3 Anxiety: 4-Mod. Anxious/Guarded Agitation: 3 Paroxysmal Sweats: 3 Orientation: 0-Oriented Tacttile Disturbances: 0-None Auditory Disturbances: 0-None Visual Disturbances: 0-None Headache: 0-None Present CIWA-Ar Total Score: 13 S COWS - Scale Resting Pulse: 0= [place] 80 or Below Sweatin= Chills/Flushing Restless Observation: 3= Extraneous Movement Pupil Size: 0= Normal to Room Light Bone or Joint Aches: 1= Mild Discomfort Runny Nose/ Eye Tearin= None GI Upset > 30mins: 0= None Tremor Observation of Outstretched Hands: 1= Tremor [place], Not Seen Yawning Observation: 0= None Anxiety or Irritability: 2=Irritable/Anxious Goose Flesh Skin: 0=Smooth Skin COWS Score: 8 [facility] Progress Note (SOAP) Subjective: C/O SWEATS, CHILLS, ANXIETY, FATIGUE. Objective: 10/26/18 12:10 Vital Signs 10/26/18 10/26/18 10/26/18 06:03 06:30 09:14 Temperature 98.2 F 99 F Pulse Rate 72 77 Respiratory 18 18 18 Rate Blood Pressure 103/65 108/67 Laboratory Tests 10/26/18 10/26/18 07:45 07:45 WBC 4.1 RBC 4.64 Hgb 13.4 Hct 39.8 MCV 85.7 MCH 28.8 MCHC 33.6 RDW 13.1 Plt Count 197 MPV 8.5 Sodium 137 Potassium 3.9 Chloride 102 Carbon Dioxide 30 Anion Gap 5 L BUN 11 Creatinine 1.2 Est GFR (CKD-EPI)AfAm 80.66 Est GFR (CKD-EPI)NonAf 69.59 Random Glucose 99 Calcium 8.6 Total Bilirubin 0.2 AST 24 ALT 30 Alkaline Phosphatase 97 Total Protein 6.6 Albumin 3.3 L Assessment: 10/26/18 12:11 WITHDRAWAL SX Plan: CONTINUE DETOX INCREASE PO FLUIDS
[2018-10-26] MEDS: THIAMINE HCL 100 MG TABLET (FP) PO SCH (22:23)
[2018-10-27] MEDS: PRENATAL VITAMINS W/ FOLIC ACID TABLET (FP) PO SCH (09:16)
[2018-10-27] MEDS ORDERED: diazePAM 5 MG TABLET PO SCH (10:00)
[2018-10-27] MEDS ORDERED: METHADONE HCL 10 MG TABLET (FOR DETOX USE ONLY) PO ONE (10:00)
[2018-10-27] MEDS: NICOTINE 14 MG/24 HOURS TOPICAL PATCH TD SCH (11:11)
--- NOTE | 2018-10-27 12:20 | PN ---
[facility] CIWA - CIWA Score Nausea/Vomitin-Mild Nausea/No Vomiting Muscle Tremors: 3 Anxiety: 2 Agitation: 2 Paroxysmal Sweats: 1-Minimal Palms Moist Orientation: 0-Oriented Tacttile Disturbances: 0-None Auditory Disturbances: 0-None Visual Disturbances: 0-None Headache: 0-None Present CIWA-Ar Total Score: 9 BHS COWS - Scale Resting Pulse: 0= [place] 80 or Below Sweatin= Chills/Flushing Restless Observation: 0= Sits Still Pupil Size: 0= Normal to Room Light Bone or Joint Aches: 1= Mild Discomfort Runny Nose/ Eye Tearin= Nasal Congestion GI Upset > 30mins: 1= Stomach Cramp Tremor Observation of Outstretched Hands: 1= Tremor Start, Not Seen Yawning Observation: 0= None Anxiety or Irritability: 1=Feels Anxious/Irritable Goose Flesh Skin: 0=Smooth Skin COWS Score: 6 S Progress Note (SOAP) Subjective: doing ok today tremor sleep better at night social with peers on hallway Objective: 10/27/18 12:20 Vital Signs Temperature 97.4 F L 10/27/18 09:10 Pulse Rate 73 10/27/18 09:10 Respiratory Rate 18 10/27/18 09:10 Blood Pressure 116/75 10/27/18 09:10 O2 Sat by Pulse Oximetry (%) Laboratory Last Values WBC 4.1 K/mm3 (4.0-10.0) 10/26/18 07:45 RBC 4.64 M/mm3 (4.00-5.60) 10/26/18 07:45 Hgb 13.4 GM/dL (11.7-16.9) 10/26/18 07:45 Hct 39.8 % (35.4-49) 10/26/18 07:45 MCV 85.7 fl (80-96) 10/26/18 07:45 MCH 28.8 pg (25.7-33.7) 10/26/18 07:45 MCHC 33.6 g/dl (32.0-35.9) 10/26/18 07:45 RDW 13.1 % (11.9-15.9) 10/26/18 07:45 Plt Count 197 K/MM3 (134-434) 10/26/18 07:45 MPV 8.5 fl (7.5-11.1) 10/26/18 07:45 Sodium 137 mmol/L (136-145) 10/26/18 07:45 Potassium 3.9 mmol/L (3.5-5.1) 10/26/18 07:45 Chloride 102 mmol/L (98-107) 10/26/18 07:45 Carbon Dioxide 30 mmol/L (21-32) 10/26/18 07:45 Anion Gap 5 MMOL/L (8-16) L 10/26/18 07:45 BUN 11 mg/dL (7-18) 10/26/18 07:45 Creatinine 1.2 mg/dL (0.55-1.3) 10/26/18 07:45 Est GFR (CKD-EPI)AfAm 80.66 10/26/18 07:45 Est GFR (CKD-EPI)NonAf 69.59 10/26/18 07:45 Random Glucose 99 mg/dL (74-106) 10/26/18 07:45 Calcium 8.6 mg/dL (8.5-10.1) 10/26/18 07:45 Total Bilirubin 0.2 mg/dL (0.2-1) 10/26/18 07:45 AST 24 U/L (15-37) 10/26/18 07:45 ALT 30 U/L (13-61) 10/26/18 07:45 Alkaline Phosphatase 97 U/L (45-117) 10/26/18 07:45 Total Protein 6.6 g/dl (6.4-8.2) 10/26/18 07:45 Albumin 3.3 g/dl (3.4-5.0) L 10/26/18 07:45 RPR Titer Nonreactive (NONREACTIVE) 10/26/18 07:45 lab noted Assessment: 10/27/18 12:20 benzo and opiate withdrawal sx Plan: continue detox
[2018-10-27] MEDS: diazePAM 5 MG TABLET PO PRN (17:09)
[2018-10-27 18:04] VITALS: BP 117/70; PULSE 72; TEMP 97.6
--- NOTE | 2018-10-27 21:23 | PN ---
[facility] Progress Note Note: 'S NOTE: INFORMED AT ABOUT 9:20 PM THAT THE PT. WANTS TO SIGN OUT AMA FOR PERSONAL REASONS. SO, HE SIGNED OUT AND ABOUT LEAVE THE FACILITY SOON. RECOMMENDED: TO F/U WITH PMD AND OUT PT. PROGRAMS. PROVIDER: ALICIA SALAS MD
[2018-10-28] MEDS ORDERED: diazePAM 5 MG TABLET PO SCH (06:00)
[2018-10-28] MEDS ORDERED: METHADONE HCL 10 MG TABLET (FOR DETOX USE ONLY) PO ONE (10:00)
[2018-10-29] MEDS ORDERED: METHADONE HCL 5 MG TABLET (FOR DETOX USE ONLY) PO ONE (06:00)
== END 2018-10-27 21:30 | disposition left against medical advice (07) | DRG 770 ==
LOC: YASAS 16:53 → Y3N 21:25
PROVIDERS: ADMIT Surgery; ATTEND Surgery
PROC: HZ2ZZZZ Detoxification Services for Substance Abuse Treatment (ICD-10-PCS; principal; 2018-10-25)
DX: F11.23 Opioid dependence with withdrawal (principal); F13.230 Sedative, hypnotic or anxiolytic dependence with withdrawal, uncomplicated; F17.213 Nicotine dependence, cigarettes, with withdrawal; F31.9 Bipolar disorder, unspecified; F19.24 Other psychoactive substance dependence with psychoactive substance-induced mood disorder; B18.2 Chronic viral hepatitis C; Z91.89 Other specified personal risk factors, not elsewhere classified
CPT/HCPCS: 36415; 80053; 85027; 86593